=== PATIENT | male | born 1955 | race Caucasian/White ===

== ENCOUNTER 2017-06-11 13:35 | Emergency (ER) | payer BC ==
[~2017-06-11] VITALS: Ht 177.8 cm; Wt 64.0 kg
[~2017-06-11 13:35] MED LIST: BACL10TA PO; EZET10TA63 PO; GLC500 PO; [UNRECOGNIZED DRUG - REMARK] PO; [UNRECOGNIZED DRUG - REMARK] PO
[2017-06-11 13:37] VITALS: TEMP 36.9; Ht 177.8 cm; Wt 64.0 kg
[2017-06-11] MEDS ORDERED: ATOR10TA88 PO (13:44)
[2017-06-11] MEDS ORDERED: GLC/500 PO ×2 (13:44)
[2017-06-11] MEDS ORDERED: XYLOCAINE 1%/SOD BICARB 20 ML VIAL INFIL ONE (13:45)
[2017-06-11] MEDS ORDERED: CEPH500C PO (14:41)
--- NOTE | 2017-06-11 14:42 | EMERGENCY ROOM VISIT NOTE ---
ED Visit Note First contact with patient: 13:41 CHIEF COMPLAINT: Lip laceration HISTORY OF PRESENT ILLNESS: This 62-year-old male patient presents emergency department, ambulatory, complaining of a laceration to the left-side of the lip. The patient states he was using a circular saw to cut pressure-treated wood, when a large piece of the wood came back and hit him in the face. The patient denies any other injuries. There was no loss of consciousness, vomiting , or unusual behavior afterwards. Denies neck pain. No headache, nausea, or blurred vision. There is minimal active bleeding. The patient rates the pain as minimal and 1/10. The patient's tetanus shot is up to date. REVIEW OF SYSTEMS: A 6 system review of systems was completed with positives and pertinent negatives listed in the HPI. ALLERGIES: None MEDICATIONS: Lipitor, Glucophage PMH: Diabetes, hyperlipidemia SOCIAL HISTORY: The patient lives locally with family. He denies drug, alcohol , tobacco use. PHYSICAL EXAM: Vital Signs: Reviewed Nurse's notes, vital signs stable. GENERAL : This is a 62-year-old male, in no acute distress, well-developed, well- nourished. NEURO: The patient is alert and oriented to person place and time. No focal neurological defects. EYES: Pupils are round, equal, and react to light. EOMI. EARS: No hemotympanum. NECK: Supple. No cervical spine tenderness. FACE: No facial bone tenderness or mandibular tenderness. The mouth can open fully. The teeth are well aligned. No loose or chipped teeth. SKIN: There is a 1 cm laceration on the left anterior aspect of the upper lip. The laceration is through the vermilion border. The edges gape apart with and without traction. There is minimal active bleeding and no foreign material in the wound. There are no deep structures present. Capillary refill less than two seconds. Normal sensation to light and sharp touch. EMERGENCY DEPARTMENT COURSE: I examined the patient. Verbal consent was obtained to perform the procedure. Using sterile technique the wound was cleansed with Betadine. The area was sterilely draped. 1.5 ml of 1% buffered lidocaine was used to anesthetize the laceration on the face. Once the patient was anesthetized, the wound was copiously irrigated under pressure with sterile saline. The wound was explored and was as described above. The laceration was repaired using 5 simple interrupted 6-0 nylon sutures with the wound edges being well approximated. The patient tolerated the procedure well. Hemostasis was achieved. The area was cleaned with sterile saline and dressed with bacitracin ointment. The patient was given a Tdap vaccination. The patient was discharged home in good condition. DIFFERENTIAL DIAGNOSIS: Facial laceration, cellulitis, FB in laceration DIAGNOSIS: Facial laceration DISCHARGE INSTRUCTIONS: You have received 5 sutures on your left lip. These sutures are NOT dissolvable and WILL need to be removed by a health care provider in 4-5 days. You can return to the Emergency Department or contact your Primary Care Provider to have the sutures removed. Proper wound care is essential for adequate wound healing and infection prevention. You can shower and clean the wound with soap and water. Do not scour over the wound, pat dry with a towel. Do not submerse the wound (i.e. bathe or dish wash) until the sutures have been removed. You can use an antibiotic ointment with a dressing over the wound for the next 3-4 days. After this time you may leave the wound dry and open to the air. If crust develops over the wound you can use a Q-tip to apply a 1:1 peroxide:water solution to clean the wound. You were prescribed Keflex to be taken 4 times daily. This is an antibiotic. All antibiotics have the potential to cause diarrhea. Stop this medication and contact a medical provider if you were to develop any significant adverse side effects including: wheezing, shortness of breath, passing out, vomiting, or a diffuse rash. Always take antibiotics as directed and COMPLETE the ENTIRE course regardless of the improvement of your symptoms. Look for signs of infection of the wound including: increased pain, swelling, foul discharge, streaking, or increased temperature. If any of these are noticed you should return to the Emergency Department for further assessment and treatment. As with any laceration you may have received nerve damage to the surrounding tissues. This damage may or may not be permanent. You should keep the area covered with sunscreen for the first 6 months to 1 year when at risk for exposure to help minimize scarring. You can also use scar reducing creams or Vitamin E oil to help minimize scarring. For pain control, you can use the following [id number] medicines (if >12 yo): - Regular strength (325mg/tab) Tylenol (acetaminophen) 2 tabs every 4-6 hours as needed. Do not exceed 12 tablets in a 24 hour period. Avoid taking more than 4 grams (4000 mg) of Tylenol per day. This includes any other sources of acetaminophen you may take on a regular basis. - Regular strength (200 mg/tab) Advil (ibuprofen) 1-2 tabs every 4-6 hours as needed. Do not exceed a dose of 3200 mg per day. Return to the emergency department if your symptoms worsen despite treatment course outlined above. Problem List Medical Problems: (1) Diabetes mellitus Status: Chronic (2) Diverticulosis Status: Chronic (3) Hiatal hernia Status: Chronic (4) Hyperlipidemia Status: Chronic (5) Kidney stone Status: Chronic Current/Historical Medications Scheduled Atorvastatin (Lipitor), Unknown Dose PO DAILY Cephalexin Monohydrate (Keflex), 500 MG PO QID Metformin Hcl (Glucophage), 1,000 MG PO QAM Metformin Hcl (Glucophage), 500 MG PO QPM Allergies Coded Allergies: No Known Allergies (Verified , 03/31/14) Vital Signs Date Time Temp Pulse Resp B/P (MAP) Pulse Ox O2 Delivery O2 Flow Rate FiO2 06/11/17 14:48 73 16 135/88 97 Room Air 06/11/17 13:37 36.9 84 16 141/91 97 Medications Administered Medications (Trade) Dose Ordered Sig/Tristan Route Start Time Stop Time Status Last Admin Dose Admin Lidocaine HCl (Buffered Lidocaine 1% Inj) 20 ml STK-MED ONCE INFIL 06/11/17 13:45 06/11/17 13:46 DC 06/11/17 13:45 20 ML Departure Information Impression Primary Impression: Lip laceration Dispostion Home / Self-Care Condition GOOD Prescriptions Cephalexin Monohydrate (Keflex) 500 Mg Cap 500 MG PO QID for 7 Days, #28 CAP Prov: Vannessa Haq PA-C 06/11/17 Referrals Mich Dowling M.D. (PCP) Patient Instructions ED Laceration Facial Sutr Tape, Zite Additional Instructions You have received 5 sutures on your left lip. These sutures are NOT dissolvable and WILL need to be removed by a health care provider in 4-5 days. You can return to the Emergency Department or contact your Primary Care Provider to have the sutures removed. Proper wound care is essential for adequate wound healing and infection prevention. You can shower and clean the wound with soap and water. Do not scour over the wound, pat dry with a towel. Do not submerse the wound (i.e. bathe or dish wash) until the sutures have been removed. You can use an antibiotic ointment with a dressing over the wound for the next 3-4 days. After this time you may leave the wound dry and open to the air. If crust develops over the wound you can use a Q-tip to apply a 1:1 peroxide:water solution to clean the wound. You were prescribed Keflex to be taken 4 times daily. This is an antibiotic. All antibiotics have the potential to cause diarrhea. Stop this medication and contact a medical provider if you were to develop any significant adverse side effects including: wheezing, shortness of breath, passing out, vomiting, or a diffuse rash. Always take antibiotics as directed and COMPLETE the ENTIRE course regardless of the improvement of your symptoms. Look for signs of infection of the wound including: increased pain, swelling, foul discharge, streaking, or increased temperature. If any of these are noticed you should return to the Emergency Department for further assessment and treatment. As with any laceration you may have received nerve damage to the surrounding tissues. This damage may or may not be permanent. You should keep the area covered with sunscreen for the first 6 months to 1 year when at risk for exposure to help minimize scarring. You can also use scar reducing creams or Vitamin E oil to help minimize scarring. For pain control, you can use the following htjc-ynm-coqjmko medicines (if >12 yo): - Regular strength (325mg/tab) Tylenol (acetaminophen) 2 tabs every 4-6 hours as needed. Do not exceed 12 tablets in a 24 hour period. Avoid taking more than 4 grams (4000 mg) of Tylenol per day. This includes any other sources of acetaminophen you may take on a regular basis. - Regular strength (200 mg/tab) Advil (ibuprofen) 1-2 tabs every 4-6 hours as needed. Do not exceed a dose of 3200 mg per day. Return to the emergency department if your symptoms worsen despite treatment course outlined above. Problem Qualifiers Primary Impression: Lip laceration Encounter type: initial encounter Qualified Codes: S01.511A - Laceration without foreign body of lip, initial encounter
[2017-06-11 14:48] VITALS: BP 135/88; PULSE 73; O2SAT 97
[2017-06-11] MEDS ORDERED: DIPHTHERIA/TETANUS/PERTUSSIS 0.5 ML SYR/VIAL IM. ONE (15:15)
== END 2017-06-11 15:10 | disposition home or self-care (01) ==
LOC: C.EDB 13:37 → C.EDD 15:10
DX: S01.511A Laceration without foreign body of lip, initial encounter (principal); W31.2XXA Contact with powered woodworking and forming machines, initial encounter; E11.9 Type 2 diabetes mellitus without complications; E78.5 Hyperlipidemia, unspecified; Z23 Encounter for immunization

== ENCOUNTER 2022-02-14 15:56 | Inpatient (IN) ==
[2022-02-14] MEDS ORDERED: SODIUM CHLORIDE 0.9% 1000ML 1,000 ML IV STA (16:13)
--- NOTE | 2022-02-14 16:19 | Emergency Department Note ---
Impression & Plan Acute pyelonephritis, Hydronephrosis due to obstruction of ureter, Kidney stone on right side ED Provider Note NAME: CLAY GOYAL AGE: 66 SEX: M : 1955 ARRIVES VIA: Walk-In INFORMANT: Patient, ED PROVIDER(S): Marcelo Lang DO CHIEF COMPLAINT: Urinary retention HPI: The patient is a 66-year-old male who presented to the emergency department with concerns for urinary retention. The patient states he thinks he might have a urinary tract infection. He had a recent biopsy of his prostate with urology. He also has a history of MS. He states he is also noticed some abdominal distention abdominal pain and constipation over the last 3 to 4 days. He denies having any fever. He denies having any hematuria. He denies having any rectal bleeding. He did not see his family doctor for the symptoms. The patient has been taking his usual outpatient medications. He is noticed no chest pain or difficulty breathing. He states his symptoms are moderate. ROS: See above HPI for pertinent positives & negatives. A total of 10 systems reviewed and were otherwise negative. PAST MEDICAL HISTORY: See Below PAST SURGICAL HISTORY: See Below FAMILY HISTORY: See Below SOCIAL HISTORY: See Below HOME MEDICATIONS: See Below ALLERGIES: See Below VITALS: See Below PHYSICAL EXAMINATION: GENERAL: Patient is awake alert in no acute distress patient is resting comfortably and showing no signs of anxiety EYES: The conjunctivae are clear. The pupils are round and reactive. EARS, NOSE, MOUTH AND THROAT: The nose is without any evidence of any deformity. NECK: The neck is nontender and supple. RESPIRATORY: Normal respiratory effort is noted there is no evidence of wheezing rhonchi or rales CARDIOVASCULAR: Regular rate and rhythm noted there no murmurs rubs or gallops normal S1 normal S2. GASTROINTESTINAL: The abdomen is soft and mildly distended. There is suprapubic tenderness to palpation but no guarding rigidity. MUSCULOSKELETAL/EXTREMITIES: There is no evidence of gross deformity full range of motion is noted in the hips and shoulders. SKIN: There is no obvious evidence of any rash. No significant pedal edema was noted. NEUROLOGIC: Patient is awake alert and oriented x3. MEDICAL DECISION MAKING: The patient is a 66-year-old male who presented to the emergency department for an evaluation of difficulty urinating. He did have a recent transrectal biopsy of his prostate. The patient was found to have signs of urinary tract infection on urinalysis. He was treated with IV fluids and IV antibiotics. The patient initially did not have a fever when he presented. Because of his other symptoms further radiographic studies were obtained including CT the abdomen and pelvis. This appears to be consistent with a very large obstructing right-sided ureteral calculus. Given these findings I discussed his condition [facility] I also discussed this case with the on-call [facility] hospitalist. They have agreed to evaluate the patient in the emergency department for further management and disposition. The patient was reevaluated multiple times. He was feeling much better on subsequent reevaluation. Triage Nursing notes reviewed. Prior medical records reviewed Vital Signs: reviewed and remarkable for no significant abnormalities Differential diagnosis: Etiologies such as appendicitis, diverticulitis, obstruction, inflammatory bowel disease, renal colic, PUD, biliary pathology, pancreatitis, mesenteric ischemia, aortic pathology, infections, genitourinary, UTI, perforated viscus, as well as others were entertained. ER treatment provided: See below Diagnostics interpreted by me: ECG: none Cardiac Monitoring: An order was placed for continuous cardiac monitoring. The monitor shows a rate of 95 bpm with sinus rhythm. Laboratory studies: As stated above and show below. Imaging studies: See below Consultation(s): I discussed this case with Dr. Albarran I discussed this case with Dr. Watkins Past Med/Surg History Medical History Diabetes mellitus Elevated PSA History of recurrent UTIs Multiple sclerosis Surgical History History of hernia surgery Family History Father Diabetes Hypertension Heart disease Social History Smoking Status: Current every day smoker Tobacco Type: Cigarettes Cigarettes Per Day: 1/2 pack; Tobacco Cessation Education Requested by Patient: No Hx Alcohol Use: Yes Alcohol type: wine Hx Substance Use: No Preferred Language: Singaporean Communication Ability: Effective Communication Ability Comment: dificulty writing d/t MS Caustic Room Operator Required: No Beliefs That Will Affect Care: None marital status: Current Living Situation: Spouse current occupational status: employed 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 Other Information That Helps Us Care for You: No Feels Safe at Home: Yes Safety Concerns: Feels Safe At This Time Assistive Devices: Cane Allergies Allergies Allergy/AdvReac Type Severity Reaction Status Date / Time No Known Allergies Allergy Unknown Verified 11/01/21 11:31 Home Meds Home Medications Medication Instructions Recorded Confirmed lisinopril 2.5 mg tablet 2.5 mg PO DAILY 02/14/22 02/14/22 metformin 750 mg tablet,extended 2,250 mg PO DAILY 02/14/22 02/14/22 release 24 hr tamsulosin 0.4 mg capsule 0.4 mg PO DAILY 02/14/22 02/14/22 Results & Data (ED) Vital Signs Vital Signs - 24 hr 02/14/22 16:00 02/14/22 16:13 02/14/22 17:00 Temperature 37.3 C 37.6 C H Temperature Source Temporal Artery Scan Oral Pulse Rate 99 H Pulse Rate [Apical] 85 Pulse Rhythm [Apical] Regular Respiratory Rate 18 17 Blood Pressure [Right Arm] 170/100 H Blood Pressure Mean [Right Arm] 123 Pulse Oximetry 96 95 Oxygen Delivery Method Room Air Sepsis Recent Fever Within 48 Hours No Sepsis New/Unexplained Change in Mental Status No Sepsis Action Taken by Nursing No Action Required 02/14/22 19:00 Temperature Temperature Source Pulse Rate Pulse Rate [Apical] 69 Pulse Rhythm [Apical] Regular Respiratory Rate 19 Blood Pressure [Right Arm] 170/100 H Blood Pressure Mean [Right Arm] 123 Pulse Oximetry 95 Oxygen Delivery Method Room Air Sepsis Recent Fever Within 48 Hours Sepsis New/Unexplained Change in Mental Status Sepsis Action Taken by [facility] Medications Current Medication List: was personally reviewed by me Laboratory Data Attestation: I reviewed the patient's lab results. Result diagrams: 02/14/22 16:35 02/14/22 16:35 Lab Results 02/14/22 02/14/22 02/14/22 Range/Units 16:34 16:35 16:35 WBC 16.84 H (4.8-10.8) K/uL RBC 4.37 L (4.7-6.1) M/uL Hgb 14.4 (14.0-18.0) g/dL Hct 42.1 (42-52) % MCV 96.3 (80-100) fL MCH 33.0 (25-34) pg MCHC 34.2 (32-36) g/dL RDW Std Deviation 44.7 (36.4-46.3) fL RDW Coeff of Blanche 12.7 (11.5-14.5) % Plt Count 223 (130-400) K/uL MPV 10.1 (7.4-10.4) fL Immature Gran % (Auto) 0.3 % Neut % (Auto) 87.2 % Lymph % (Auto) 3.4 % [place] % (Auto) 8.9 % Eos % (Auto) 0.1 % Baso % (Auto) 0.1 % Neut # (Auto) 14.68 H (1.4-6.5) K/uL Lymph # (Auto) 0.57 L (1.2-3.4) K/uL [place] # (Auto) 1.50 H (0.11-0.59) K/uL Eos # (Auto) 0.02 (0-0.5) K/uL Baso # (Auto) 0.02 (0-0.2) K/uL Immature Gran # (Auto) 0.05 H (0.00-0.02) K/uL Sodium 135 L (136-145) mmol/L Potassium 4.1 (3.5-5.1) mmol/L Chloride 99 (98-107) mmol/L Carbon Dioxide 27 (21-32) mmol/L Anion Gap 9 (3-11) BUN 11 (6-23) mg/dl Creatinine 0.83 (0.6-1.4) mg/dl Est Cr Clr Drug Dosing Not Reportable Est GFR ( Amer) 105.5 ml/min Est GFR (Non-Af Amer) 91.0 ml/min BUN/Creatinine Ratio 13.3 (10-20) Glucose 212 H (70-99(Fasting)) mg/dl Lactate (0.4-2.0) mmol/L Calcium 9.0 (8.5-10.1) mg/dl Total Bilirubin 1.9 H (0.2-1.0) mg/dl AST 15 (13-39) U/L ALT 15 (7-52) U/L Alkaline Phosphatase 69 (34-104) U/L Total Protein 6.8 (6.0-8.3) gm/dl Albumin 3.9 (3.4-5.0) gm/dl Globulin 2.9 (2.5-4.0) gm/dl Albumin/Globulin Ratio 1.3 (0.9-2) Lipase 8 L (11-82) U/L Urine Color Yellow Urine Appearance Clear (Clear) Urine pH 6.0 (4.5-7.5) Ur Specific Media 1.022 (1.000-1.030) Urine Protein 1+ H (Negative) Urine Glucose (UA) 2+ H (Negative) Urine Ketones 1+ H (Negative) Urine Blood 3+ H (Negative) Urine Nitrite Positive A (Negative) Urine Bilirubin Negative (Negative) Urine Urobilinogen Negative (Negative) Ur Leukocyte Esterase 1+ H (Negative) Urine WBC (Auto) >30 H (0-5) /hpf Urine RBC (Auto) >30 H (0-4) /hpf U Hyaline Cast (Auto) 1-5 (0-5) /lpf U Epithel Cells (Auto) 5-10 H (0-5) /lpf Urine Bacteria (Auto) 3+ H (Negative) Urine Yeast Budding w/ Hyphae A (None Prsent) 02/14/22 Range/Units 19:00 WBC (4.8-10.8) K/uL RBC (4.7-6.1) M/uL Hgb (14.0-18.0) g/dL Hct (42-52) % MCV (80-100) fL MCH (25-34) pg MCHC (32-36) g/dL RDW Std Deviation (36.4-46.3) fL RDW Coeff of Blanche (11.5-14.5) % Plt Count (130-400) K/uL MPV (7.4-10.4) fL Immature Gran % (Auto) % Neut % (Auto) % Lymph % (Auto) % [place] % (Auto) % Eos % (Auto) % Baso % (Auto) % Neut # (Auto) (1.4-6.5) K/uL Lymph # (Auto) (1.2-3.4) K/uL [place] # (Auto) (0.11-0.59) K/uL Eos # (Auto) (0-0.5) K/uL Baso # (Auto) (0-0.2) K/uL Immature Gran # (Auto) (0.00-0.02) K/uL Sodium (136-145) mmol/L Potassium (3.5-5.1) mmol/L Chloride (98-107) mmol/L Carbon Dioxide (21-32) mmol/L Anion Gap (3-11) BUN (6-23) mg/dl Creatinine (0.6-1.4) mg/dl Est Cr Clr Drug Dosing Est GFR ( Amer) ml/min Est GFR (Non-Af Amer) ml/min BUN/Creatinine Ratio (10-20) Glucose (70-99(Fasting)) mg/dl Lactate 1.2 (0.4-2.0) mmol/L Calcium (8.5-10.1) mg/dl Total Bilirubin (0.2-1.0) mg/dl AST (13-39) U/L ALT (7-52) U/L Alkaline Phosphatase (34-104) U/L Total Protein (6.0-8.3) gm/dl Albumin (3.4-5.0) gm/dl Globulin (2.5-4.0) gm/dl Albumin/Globulin Ratio (0.9-2) Lipase (11-82) U/L Urine Color Urine Appearance (Clear) Urine pH (4.5-7.5) Ur Specific Media (1.000-1.030) Urine Protein (Negative) Urine Glucose (UA) (Negative) Urine Ketones (Negative) Urine Blood (Negative) Urine Nitrite (Negative) Urine Bilirubin (Negative) Urine Urobilinogen (Negative) Ur Leukocyte Esterase (Negative) Urine WBC (Auto) (0-5) /hpf Urine RBC (Auto) (0-4) /hpf U Hyaline Cast (Auto) (0-5) /lpf U Epithel Cells (Auto) (0-5) /lpf Urine Bacteria (Auto) (Negative) Urine Yeast (None Prsent) Administered Medications Acetaminophen (Acetaminophen 325 Mg Tab) 650 mg PO Q4H PRN PRN Reason: Pain or Fever Stop: 03/16/22 21:56 Last Admin: 02/14/22 22:43 Dose: 650 mg Documented by: [id number] Lactated Ringer's (Lr) 1,000 mls @ 125 mls/hr IV .Q8H PATRICIO Stop: 03/16/22 22:44 Last Infusion: 02/15/22 00:03 Dose: 125 mls/hr Documented by: [id number] Admin: 02/15/22 00:02 Dose: 125 mls/hr Documented by: [id number] Insulin Aspart (Insulin Aspart Per Unit) 0 units SC Q6 PATRICIO Stop: 03/16/22 22:29 Last Admin: 02/14/22 23:11 Dose: 2 units Documented by: [id number] Cosigned by: [id number] Discontinued Medications Sodium Chloride (Nss 1000ml) 1,000 mls @ 999 mls/hr IV .Q1H1M STA Stop: 02/14/22 17:13 Last Infusion: 02/14/22 19:59 Dose: 0 mls/hr Documented by: [id number] Admin: 02/14/22 16:31 Dose: 999 mls/hr Documented by: [id number] Ceftriaxone Sodium (Rocephin) 1,000 mg in 50 mls @ 100 mls/hr IV NOW STA Stop: 02/14/22 18:13 Last Infusion: 02/14/22 21:15 Dose: 0 mls/hr Documented by: [id number] Admin: 02/14/22 19:00 Dose: 100 mls/hr Documented by: [id number] Sodium Chloride (Nss 1000ml) 1,000 mls @ 999 mls/hr IV .Q1H1M ONE Stop: 02/14/22 19:04 Last Infusion: 02/14/22 22:58 Dose: 0 mls/hr Documented by: [id number] Admin: 02/14/22 20:30 Dose: 999 mls/hr Documented by: [id number] Piperacillin Sod/Tazobactam (Sod 3.375 gm/ Dextrose) 115 mls @ 230 mls/hr IV ONE ONE; Protocol Stop: 02/14/22 22:59 Last Infusion: 02/14/22 23:42 Dose: 0 mls/hr Documented by: [id number] Admin: 02/14/22 23:09 Dose: 230 mls/hr Documented by: [id number] Lactated Ringer's (Lr) 500 mls @ 999 mls/hr IV .Q31M ONE Stop: 02/14/22 23:10 Last Infusion: 02/15/22 00:02 Dose: 0 mls/hr Documented by: [id number] Admin: 02/14/22 23:25 Dose: 999 mls/hr Documented by: [id number] Imaging Data Radiologist's Impression: Abdomen/Pelvis CT 02/14/22 16:13 CT abd pelvis wo con CLINICAL HISTORY: flank pain TECHNIQUE: Helical axial images of the abdomen and pelvis were obtained. Automated dose lowering techniques and/or adjustment according to patient size were utilized for this exam. This exam was performed without intravenous contrast. COMPARISON: Comparison is made to CT abdomen pelvis 08/14/2012 FINDINGS: Lower chest: No acute abnormality Liver: Unremarkable. No focal lesions are seen. Gallbladder and biliary tree: No calcified gallstones. Normal caliber wall. No intra- or extrahepatic biliary ductal dilation. Pancreas: Unremarkable, no focal lesions. Spleen: Unremarkable. Adrenals: Unremarkable. Kidneys and ureters: There is right hydronephrosis and an obstructing stone in the proximal ureter measuring 4 mm. Bladder: Unremarkable. Reproductive organs: Prostatic calcifications are seen which may represent prior hemorrhage or granulomatous disease. Bowel: Diverticulosis is seen without evidence of diverticulitis. The appendix is normal. A hiatal hernia is seen. Lymph nodes Retroperitoneal: Subcentimeter lymph nodes are noted. Mesenteric: Unremarkable. Pelvic: Unremarkable. Peritoneum: Normal. Vessels: Atherosclerotic calcifications are seen. Abdominal wall: Unremarkable. Bones: Degenerative changes in the visualized spine. IMPRESSION: Obstructive right nephrolithiasis with associated hydronephrosis. ACT 112: Negative or not required by law. Electronically signed by: Breezy Michelle M.D. 02/14/2022 6:15 PM Discharge Plan Visit Data Chief Complaint: Unable to Void Stated Complaint: CONSTIPATION, URINARY SYMPTOMS ED Provider: Marcelo Lang Discharge Problem: Acute pyelonephritis, Hydronephrosis due to obstruction of ureter, Kidney stone on right side Patient Disposition: Admitted As Inpatient Discharge Instructions Interventions: ED Discharge Assessment Last Done: 02/14/22 21:23
[2022-02-14 17:04] LABS: Appearance Urine Clear (Clear); Bacteria Urine Automated 3+ (Negative); Bilirubin Urine Negative (Negative); Blood Urine 3+ (Negative); Color Urine Yellow; Glucose Urine UA 2+ (Negative); Ketones Urine 1+ (Negative); Leukocyte Esterase Urine 1+ (Negative); Nitrite Urine Positive (Negative); Protein Urine 1+ (Negative); RBC Urine Automated >30 /hpf (0-4); Specific Gravity Urine 1.022 (1.000-1.030); Urobilinogen Urine Negative (Negative); WBC Urine Automated >30 /hpf (0-5)
[2022-02-14 17:16] LABS: Alanine Aminotransferase 15 U/L (7-52); Albumin Globulin Ratio 1.3 (0.9-2); Albumin Level 3.9 gm/dl (3.4-5.0); Alkaline Phosphatase 69 U/L (34-104); Anion Gap 9 (3-11); Aspartate Aminotransferase 15 U/L (13-39); BUN Creatinine Ratio 13.3 (10-20); Bilirubin,Total 1.9 mg/dl (0.2-1.0); Blood Urea Nitrogen 11 mg/dl (6-23); Carbon Dioxide 27 mmol/L (21-32); Chloride 99 mmol/L (98-107); Est GFR (African American) 105.5 ml/min; Globulin 2.9 gm/dl (2.5-4.0); Glucose 212 mg/dl (70-99(Fasting)); Lipase 8 U/L (11-82); Potassium 4.1 mmol/L (3.5-5.1); Sodium 135 mmol/L (136-145); Total Protein 6.8 gm/dl (6.0-8.3)
[2022-02-14 17:38] LABS: Basophils # (auto) 0.02 K/uL (0-0.2); Basophils % (auto) 0.1 %; Eosinophils # (auto) 0.02 K/uL (0-0.5); Eosinophils % (auto) 0.1 %; Hematocrit (blood only) 42.1 % (42-52); Hemoglobin 14.4 g/dL (14.0-18.0); Immature Granulocytes # (auto) 0.05 K/uL (0.00-0.02); Immature Granulocytes % (auto) 0.3 %; Lymphocytes # (auto) 0.57 K/uL (1.2-3.4); Lymphocytes % (auto) 3.4 %; Mean Corpuscular Hgb Conc 34.2 g/dL (32-36); Mean Corpuscular Volume 96.3 fL (80-100); Mean Platelet Volume 10.1 fL (7.4-10.4); Monocytes % (auto) 8.9 %; Neutrophils # (auto) 14.68 K/uL (1.4-6.5); Neutrophils % (auto) 87.2 %; Platelet Count 223 K/uL (130-400); RDW Coefficient of Variation 12.7 % (11.5-14.5); RDW Standard Deviation 44.7 fL (36.4-46.3); Red Blood Count 4.37 M/uL (4.7-6.1); White Blood Count 16.84 K/uL (4.8-10.8)
[2022-02-14] MEDS ORDERED: cefTRIAXone SODIUM 1,000 MG/50 ML BAG IV STA (17:44)
[2022-02-14] MEDS ORDERED: SODIUM CHLORIDE 0.9% 1000ML 1,000 ML IV ONE (18:04)
--- NOTE | 2022-02-14 18:18 | CT Scan Report ---
CT abd pelvis wo con CLINICAL HISTORY: flank pain TECHNIQUE: Helical axial images of the abdomen and pelvis were obtained. Automated dose lowering tech niques and/or adjustment according to patient size were utilized for this exam. This exam was perfor med without intravenous contrast. COMPARISON: Comparison is made to CT abdomen pelvis 08/14/2012 FINDINGS: Lower chest: No acute abnormality Liver: Unremarkable. No focal lesions are seen. Gallbladder and biliary tree: No calcified gallstones. Normal caliber wall. No intra- or extrahepatic biliary ductal dilation. Pancreas: Unremarkable, no focal lesions. Spleen: Unremarkable. Adrenals: Unremarkable. Kidneys and ureters: There is right hydronephrosis and an obstructing stone in the proximal ureter me asuring 4 mm. Bladder: Unremarkable. Reproductive organs: Prostatic calcifications are seen which may represent prior hemorrhage or granul omatous disease. Bowel: Diverticulosis is seen without evidence of diverticulitis. The appendix is normal. A hiatal he rnia is seen. Lymph nodes Retroperitoneal: Subcentimeter lymph nodes are noted. Mesenteric: Unremarkable. Pelvic: Unremarkable. Peritoneum: Normal. Vessels: Atherosclerotic calcifications are seen. Abdominal wall: Unremarkable. Bones: Degenerative changes in the visualized spine. IMPRESSION: Obstructive right nephrolithiasis with associated hydronephrosis. ACT 112: Negative or not required by law. Electronically signed by: Breezy Michelle M.D. 02/14/2022 6:15 PM
--- NOTE | 2022-02-14 18:43 | History & Physical Report ---
Date of Service February 14, 2022 Assessment & Plan (1) Sepsis secondary to UTI: Plan: Having chills in the ER but no objective fever SIRS criteria met with HR and WBC Lactate WNL Ceftriaxone 2g IV given in the ER, will broaden coverage to Zosyn Follow up blood (taken after first dose of antibiotics) and urine cultures Discussed with Dr Albarran - planning on ureteral stent tomorrow (2) Hydronephrosis with urinary obstruction due to ureteral calculus: Plan: Planning on ureteral stent tomorrow (3) Constipation: Plan: Main reason for him coming to the ER today. Currently NPO therefore laxatives deferred (4) Diabetes mellitus: Plan: Hemoglobin A1C unknown, take with AM labs Hold metformin Insulin sliding scale for correction only, will add Lantus if requiring regular correction (5) Multiple sclerosis: Plan: Notable history of this, not on any medications Plan: VTE Prophylaxis - chemical deferred as may need urgent stent overnight Diet - NPO Disposition - admit to PCU Admission and Anticipated Discharge Date Admission Date: February 14, 2022 History of Present Illness Chief Complaint: Urinary retention Primary Care Provider: MD Frankie Burdick 66 year old male who presents to the ER with 4 days of urinary retention and no bowel movements. He has intermittently self catheterized for the last year. He recently underwent prostate biopsy on 01/31/22. No significant problems following the biopsy, only a small amount of blood in urine but otherwise was urinating ok. For the last 4 days however he has been unable to pass urine and using intermittent catheterization. No BM for last 4 days. Tried laxatives before he came here OTC but didn't help. He reports chills all day today but no objective fever. He denies any nausea, vomiting or abdominal pain. He reports lower bilateral back pain. Last drank Gatorade around 10am. Not eaten anything in the last 2 days. With regards to the constipation he reports this is a new thing. Does not usually get constipated. He last had a colonoscopy 1-2 years ago with some polyps. In the ER CT showed an obstructing right nephrolithiasis with associated hydronephrosis. He was given IV ceftriaxone. ER discussed with urology and recommended ureteral stent planned for tomorrow. He was referred to medicine for admission and ongoing management of pyelonephritis and hydronephrosis secondary to kidney stone. Allergies Allergy/AdvReac Type Severity Reaction Status Date / Time No Known Allergies Allergy Unknown Verified 11/01/21 11:31 Home Medications Medication Instructions Recorded Confirmed Type lisinopril 2.5 mg tablet 2.5 mg PO DAILY 02/14/22 02/14/22 History metformin 750 mg tablet,extended 2,250 mg PO DAILY 02/14/22 02/14/22 History release 24 hr tamsulosin 0.4 mg capsule 0.4 mg PO DAILY 02/14/22 02/14/22 History Past Med/Surg History Medical History Diabetes mellitus Elevated PSA History of recurrent UTIs Multiple sclerosis Surgical History History of hernia surgery Family History Father Diabetes Hypertension Heart disease Social History Smoking Status: Current every day smoker Tobacco Type: Cigarettes Cigarettes Per Day: 1/2 pack; Tobacco Cessation Education Requested by Patient: No Hx Alcohol Use: Yes Alcohol type: wine Hx Substance Use: No Preferred Language: Nigerien Communication Ability: Effective Communication Ability Comment: dificulty writing d/t MS 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 Required: No Beliefs That Will Affect Care: None marital status: Current Living Situation: Spouse current occupational status: employed 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 Other Information That Helps Us Care for You: No Feels Safe at Home: Yes Safety Concerns: Feels Safe At This Time Assistive Devices: Cane Review of Systems Review of Systems: All systems reviewed & are unremarkable except as noted in HPI & below Physical Exam Constitutional: WD/WN, vitals as above Eyes: + anicteric sclerae; normal pupil size ENMT: external ear and nose normal, oropharynx normal Respiratory: normal respiratory effort, lungs clear to auscultation Cardiovascular: Rate/Rhythm: regular rhythm and + tachycardic Heart Sounds: no murmur Extremities: normal capillary refill; no calf tenderness and no pedal edema Gastrointestinal (Abdomen): Inspection/Auscultation: normal bowel sounds Percussion/Palpation: abdomen soft; abdomen nontender, no guarding and abdomen not rigid Musculoskeletal: no cyanosis or clubbing, extremities motor strength 5/5 Skin: no rashes, warm and dry Neurologic: moves all extremities and awake; not confused Psychiatric: A+Ox3, euthymic affect Genitourinary: no CVA tenderness Results & Data Results & Data ([facility]) Vital Signs (Past 12 Hours) Vital Signs Temp Pulse Resp Pulse Ox 02/14/22 16:00 37.3 C 99 H 18 96 Laboratory Results Abnormal lab results 02/14/22 02/14/22 02/14/22 Range/Units 16:34 16:35 16:35 WBC 16.84 H (4.8-10.8) K/uL RBC 4.37 L (4.7-6.1) M/uL Neut # (Auto) 14.68 H (1.4-6.5) K/uL Lymph # (Auto) 0.57 L (1.2-3.4) K/uL [facility] [place] [facility] # (Auto) 1.50 H (0.11-0.59) K/uL Immature Gran # (Auto) 0.05 H (0.00-0.02) K/uL Sodium 135 L (136-145) mmol/L Glucose 212 H (70-99(Fasting)) mg/dl Total Bilirubin 1.9 H (0.2-1.0) mg/dl Lipase 8 L (11-82) U/L Urine Protein 1+ H (Negative) Urine Glucose (UA) 2+ H (Negative) Urine Ketones 1+ H (Negative) Urine Blood 3+ H (Negative) Urine Nitrite Positive A (Negative) Ur Leukocyte Esterase 1+ H (Negative) Urine WBC (Auto) >30 H (0-5) /hpf Urine RBC (Auto) >30 H (0-4) /hpf U Epithel Cells (Auto) 5-10 H (0-5) /lpf Urine Bacteria (Auto) 3+ H (Negative) Urine Yeast Budding w/ Hyphae A (None Prsent) Diagnostic Findings CT abd pelvis wo con CLINICAL HISTORY: flank pain TECHNIQUE: Helical axial images of the abdomen and pelvis were obtained. Au tomated dose lowering techniques and/or adjustment according to patient size were utilized for this exam. This exam was performed without intravenous contrast. COMPARISON: Comparison is made to CT abdomen pelvis 08/14/2012 FINDINGS: Lower chest: No acute abnormality Liver: Unremarkable. No focal lesions are seen. Gallbladder and biliary tree: No calcified gallstones. Normal caliber wall. No intra- or extrahepatic biliary ductal dilation. Pancreas: Unremarkable, no focal lesions. Spleen: Unremarkable. Adrenals: Unremarkable. Kidneys and ureters: There is right hydronephrosis and an obstructing stone in the proximal ureter measuring 4 mm. Bladder: Unremarkable. Reproductive organs: Prostatic calcifications are seen which may represent prior hemorrhage or granulomatous disease. Bowel: Diverticulosis is seen without evidence of diverticulitis. The appendix is normal. A hiatal hernia is seen. Lymph nodes Retroperitoneal: Subcentimeter lymph nodes are noted. Mesenteric: Unremarkable. Pelvic: Unremarkable. Peritoneum: Normal. Vessels: Atherosclerotic calcifications are seen. Abdominal wall: Unremarkable. Bones: Degenerative changes in the visualized spine. IMPRESSION: Obstructive right nephrolithiasis with associated hydronephrosis. Medications Administered ER Medications Given: NSS 2L bolus Ceftriaxone 1g IV Code Status & VTE Plan Code Status Full VTE Prophylaxis Plan VTE Prophylaxis will be ordered: No PG Care Time/CCT Total # of Minutes Spent Total Time Spent with Patient: Total time spent is greater than 50% in coordination of care (as documented) at patient's floor/unit and/or counseling patient: Coding Level of Care Code 48444 Initial Inpt Care Lvl 3 Diagnoses Diabetes mellitus E11.9 Multiple sclerosis G35 Hydronephrosis with urinary obstruction due to ureteral calculus N13.2 Sepsis secondary to UTI A41.9; N39.0 Constipation K59.00
[2022-02-14] MEDS ORDERED: GLUCAGON FOR INJ 1 MG VIAL SQ PRN (21:57)
[2022-02-14] MEDS ORDERED: GLUCOSE 40% GEL 15 GM TUBE PO PRN (21:57)
[2022-02-14] MEDS ORDERED: PIPERACILL/TAZOBAC CONSULT ACTIVE PRN (21:57)
[2022-02-14] MEDS ORDERED: DEXTROSE 50% 50 ML SYRINGE IV PRN (21:57)
[2022-02-14] MEDS ORDERED: ONDANSETRON INJ 2 MG/ML 2 ML VIAL IV PRN (21:57)
[2022-02-14] MEDS ORDERED: GLUCOSE 10 TABS/TUBE PO PRN (21:57)
[2022-02-14] MEDS ORDERED: CARBOHYDRATES FOR HYPOGLYCEMIA PO PRN (21:57)
[2022-02-14] MEDS ORDERED: PIPERACILLIN/TAZOBACTAM 3.375 GM in DEXTROSE 5% 100 ML IV ONE (22:30)
[2022-02-14] MEDS ORDERED: LACTATED RINGER'S 500 ML IV ONE (22:40)
[2022-02-14] MEDS: ACETAMINOPHEN 325 MG TAB PO PRN (22:43)
[2022-02-14] MEDS: INSULIN ASPART PER UNIT SC SCH (23:11)
[2022-02-15] MEDS: LACTATED RINGER'S 1,000 ML IV SCH ×3 (00:02→20:54)
[2022-02-15] MEDS: PIPERACILLIN/TAZOBACTAM 3.375 GM in DEXTROSE 5% 100 ML IV SCH ×3 (04:16→20:53)
[2022-02-15] MEDS: INSULIN ASPART PER UNIT SC SCH ×4 (06:28→20:55)
--- NOTE | 2022-02-15 07:34 | Urology Consultation ---
Date of Consultation February 15, 2022 Assessment & Plan (1) Kidney stone on right side: (2) Urinary tract infection: 66-year-old male with a history of MS and neurogenic bladder. He presented to the hospital with right flank pain and was found to have a right proximal ureteral calculus and concern for infection. Plan to go the OR this morning for cystoscopy with right retrograde pyelogram right ureteral stent placement Continue antibiotics Consent obtained and patient marked History of Present Illness Reason for Consultation: Right ureteral calculus Attending Physician: Tawny Washburn MD History of Present Illness 66-year-old male who I followed for history of MS and neurogenic bladder. He is also had elevated PSAs and most recently performed a prostate needle biopsy, which was negative. He intermittently catheterizes to empty his bladder. At our last visit, we had discussed moving forward with urodynamics for further evaluation. He presented to the emergency department yesterday with right flank pain. Labs showed a leukocytosis of 16.8, creatinine of 0.83 which is roughly his baseline, and urinalysis that was positive for nitrites, positive for leukocyte esterase, greater than 30 WBCs, greater than 30 RBCs with bacteria and yeast. I suspect this is colonization due to his catheterization regiment. CT scan was performed which shows a right proximal ureteral calculus and a significantly malrotated right kidney. There is moderate right hydronephrosis. Vitals showed that he was febrile with a heart rate in the 90s and was maintaining his blood pressures. He received ceftriaxone as well as Zosyn. Allergies Allergy/AdvReac Type Severity Reaction Status Date / Time No Known Allergies Allergy Unknown Verified 11/01/21 11:31 Home Medications Medication Instructions Recorded Confirmed Type lisinopril 2.5 mg tablet 2.5 mg PO DAILY 02/14/22 02/14/22 History metformin 750 mg tablet,extended 2,250 mg PO DAILY 02/14/22 02/14/22 History release 24 hr tamsulosin 0.4 mg capsule 0.4 mg PO DAILY 02/14/22 02/14/22 History Patient History Medical History Diabetes mellitus Elevated PSA History of recurrent UTIs Multiple sclerosis Surgical History History of hernia surgery Family History Father Diabetes Hypertension Heart disease Social History Smoking Status: Current every day smoker Tobacco Type: Cigarettes Cigarettes Per Day: 1/2 pack; Tobacco Cessation Education Requested by Patient: No Hx Alcohol Use: Yes Alcohol type: wine Hx Substance Use: No Preferred Language: Sinhala Communication Ability: Effective Communication Ability Comment: dificulty writing d/t MS 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 Required: No Beliefs That Will Affect Care: None marital status: Current Living Situation: Spouse current occupational status: employed 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 Other Information That Helps Us Care for You: No Feels Safe at Home: Yes Safety Concerns: Feels Safe At This Time Assistive Devices: Cane Review of Systems Review of Systems: 14 point review of systems negative outside of what is listed above in HPI Physical Exam Physical Exam: General: Alert and oriented, no acute distress HEENT: Normocephalic, mucous membranes moist Pulmonary: Nonlabored respirations Abdomen: Nondistended Extremities: Moves all 4 spontaneously Neuro: No gross deficits Skin: Warm, dry, no rashes noted Results & Data ([facility]) Vital Signs (Past 12 Hours) Vital Signs Temp Pulse Pulse Resp BP BP Pulse Ox 02/15/22 03:17 37.4 C 99 H 16 118/69 96 02/14/22 22:46 38.7 C H 93 H 17 159/72 H 97 02/14/22 22:00 39.1 C H 99 H 20 156/76 H 95 02/14/22 21:45 97 H 02/14/22 21:23 95 H 12 139/89 95 PG Care Time/CCT Total # of Minutes Spent Total Time Spent with Patient: Total time spent is greater than 50% in coordination of care (as documented) at patient's floor/unit and/or counseling patient: C[place] [address] Initial Inpt Care Lvl 3 Patient Type Established Diagnoses Kidney stone on right side N20.0 Urinary tract infection N39.0
[2022-02-15] MEDS ORDERED: fentaNYL citrate 100 MCG/2 ML VIAL ONE (07:59)
[2022-02-15] MEDS ORDERED: ONDANSETRON INJ 2 MG/ML 2 ML VIAL ONE (07:59)
[2022-02-15] MEDS ORDERED: MIDAZOLAM HCL 1 MG/ML 2ML VIAL ONE (07:59)
[2022-02-15] MEDS ORDERED: PROPOFOL IV EMULSION 10 MG/ML 20 ML VIAL IV ONE ×2 (07:59→08:29)
[2022-02-15 08:03] LABS: Basophils # (auto) 0.01 K/uL (0-0.2); Basophils % (auto) 0.1 %; Eosinophils # (auto) 0.01 K/uL (0-0.5); Eosinophils % (auto) 0.1 %; Hematocrit (blood only) 35.2 % (42-52); Hemoglobin 11.9 g/dL (14.0-18.0); Immature Granulocytes # (auto) 0.01 K/uL (0.00-0.02); Immature Granulocytes % (auto) 0.1 %; Lymphocytes # (auto) 0.62 K/uL (1.2-3.4); Lymphocytes % (auto) 6.1 %; Mean Corpuscular Hemoglobin 32.6 pg (25-34); Mean Corpuscular Hgb Conc 33.8 g/dL (32-36); Mean Corpuscular Volume 96.4 fL (80-100); Mean Platelet Volume 9.7 fL (7.4-10.4); Monocytes % (auto) 8.9 %; Neutrophils # (auto) 8.58 K/uL (1.4-6.5); Neutrophils % (auto) 84.7 %; Platelet Count 194 K/uL (130-400); RDW Coefficient of Variation 12.7 % (11.5-14.5); RDW Standard Deviation 44.7 fL (36.4-46.3); Red Blood Count 3.65 M/uL (4.7-6.1); White Blood Count 10.13 K/uL (4.8-10.8)
[2022-02-15] MEDS ORDERED: ePHEDrine sulfate 50 MG/ML AMP IV PRN (08:14)
[2022-02-15] MEDS ORDERED: fentaNYL citrate 100 MCG/2 ML VIAL IV PRN (08:14)
[2022-02-15] MEDS ORDERED: NALOXONE HCL 0.4 MG/1 ML VIAL/CARP IV PRN (08:14)
[2022-02-15] MEDS ORDERED: FLUMAZENIL 0.1 MG/1 ML 10 ML VIAL IV PRN (08:14)
[2022-02-15] MEDS ORDERED: ATROPINE SULFATE 0.1 MG/ML 10ML SYR IV PRN (08:14)
[2022-02-15] MEDS ORDERED: PROMETHAZINE HCL 12.5 MG in SODIUM CHLORIDE 0.9% 50 ML IV PRN (08:14)
[2022-02-15] MEDS ORDERED: LABETALOL HCL IV 5 MG/ML 20ML IV PRN (08:14)
[2022-02-15] MEDS ORDERED: ONDANSETRON INJ 2 MG/ML 2 ML VIAL IV PRN (08:14)
--- NOTE | 2022-02-15 08:14 | Anesthesiology Consultation ---
Date of Service February 15, 2022 Assessment & Plan Chart Review Chart Review: Acceptable Risk for Surgery and Patient NOT seen in Pre Admission Testing Consults Requested none ASA ASA3 Proposed Anesthesia Anesthesia Type: MAC Risk / Benefits Reviewed With: PT / POA / Parent / Guardian, Accepts Plan and Informed Consent Obtained Additional Comments: covid test negative History Surgery Operation Date: 02/15/22 09:50 Proposed Procedures p Cystoscopy, Right Ureteral Stent Placement - Chuckie Crowell MD Height/Weight Height: 5 ft 10 in Weight: 82.3 kg Allergies Allergy/AdvReac Type Severity Reaction Status Date / Time No Known Allergies Allergy Unknown Verified 11/01/21 11:31 Medications Home Medications Medication Instructions Recorded Confirmed Last Taken lisinopril 2.5 mg tablet 2.5 mg PO DAILY 02/14/22 02/14/22 Unknown metformin 750 mg tablet,extended 2,250 mg PO DAILY 02/14/22 02/14/22 Unknown release 24 hr tamsulosin 0.4 mg capsule 0.4 mg PO DAILY 02/14/22 02/14/22 Unknown Active Medications Generic Name Dose Route Start Last Admin Trade Name Freq PRN Reason Stop Dose Admin Acetaminophen 650 mg 02/14/22 21:57 02/14/22 22:43 Acetaminophen 325 Mg Tab PO 03/16/22 21:56 650 mg Q4H PRN Administration Pain or Fever Piperacillin Sod/Tazobactam 115 mls @ 28.75 mls/hr 02/15/22 04:00 02/15/22 04:16 Sod 3.375 gm/ Dextrose IV 02/25/22 03:59 28.8 mls/hr Q8H PATRICIO Administration Protocol Lactated Ringer's 1,000 mls @ 125 mls/hr 02/14/22 22:45 02/15/22 00:03 Lr IV 03/16/22 22:44 125 mls/hr .Q8H PATRICIO Infusion Insulin Aspart 0 units 02/14/22 22:30 02/15/22 06:28 Insulin Aspart Per Unit SC 03/16/22 22:29 2 units Q6 PATRICIO Administration NPO Date Last Intake of Fluids: 02/14/22 Time Last Intake of Fluids: 23:00 Date Last Intake of Solids: 02/14/22 Time Last Intake of Solids: 11:00 Past Medical History Medical History Diabetes mellitus Elevated PSA History of recurrent UTIs Multiple sclerosis Exercise / Class Metabolic Activity III < 4 Walking/Shop/Light housework Past Family History Family History Father Diabetes Hypertension Heart disease Past Surgical History Surgical History History of hernia surgery Past Anesthesia History No Hx of Anesthesia Complications and No Family Hx of Anesthesia Complications History of PONV No Hx of PONV and No Hx of Motion Sickness Social History Smoking Status: Current every day smoker tobacco type: cigarettes Smoking cigarettes per day: 1/2 pack Hx Alcohol Use: Yes Alcohol type: wine alcohol intake frequency: a few times a week Hx Substance Use: No Physical Exam Vital Signs Last Vital Signs Temp 37.8 C H 02/15/22 07:46 Pulse 90 02/15/22 07:46 Resp 18 02/15/22 07:46 BP 131/72 02/15/22 07:46 Pulse Ox 95 02/15/22 07:46 Constitutional not obese ENMT Mouth: no dentition abnormality Thyromental Distance: > or= 3.5 Finger Breadths Mallampati Class: II Neck normal visual inspection and trachea midline; neck extension not limited Respiratory normal respiratory effort Auscultation: lungs clear to auscultation bilaterally Cardiovascular Rate/Rhythm: regular rate and regular rhythm Heart Sounds: no murmur Vessels: no carotid bruit Musculoskeletal Spine: normal cervical ROM Extremities: extremities normal to inspection (right leg weakness) Neurologic moves all extremities Motor/Sensory: no sensory deficit Psychiatric Orientation: alert and oriented x 3 Testing Laboratory Results 02/15/22 07:25 Urine Color Yellow 02/14/22 16:34 Urine Appearance Clear (Clear) 02/14/22 16:34 Urine pH 6.0 (4.5-7.5) 02/14/22 16:34 Ur Specific [place] 1.022 (1.000-1.030) 02/14/22 16:34 Urine Protein 1+ (Negative) H 02/14/22 16:34 Urine Glucose (UA) 2+ (Negative) H 02/14/22 16:34 Urine Ketones 1+ (Negative) H 02/14/22 16:34 Urine Nitrite Positive (Negative) A 02/14/22 16:34 Ur Leukocyte Esterase 1+ (Negative) H 02/14/22 16:34 Urine WBC (Auto) >30 /hpf (0-5) H 02/14/22 16:34 Urine RBC (Auto) >30 /hpf (0-4) H 02/14/22 16:34 U Hyaline Cast (Auto) 1-5 /lpf (0-5) 02/14/22 16:34 U Epithel Cells (Auto) 5-10 /lpf (0-5) H 02/14/22 16:34 Urine Bacteria (Auto) 3+ (Negative) H 02/14/22 16:34 02/15/22 02/15/22 02/15/22 07:48 07:33 06:14 POC Glucose 156 H 174 H 217 H 02/14/22 22:47 POC Glucose 219 H
[2022-02-15 08:28] LABS: BUN Creatinine Ratio 14.1 (10-20); Calcium 8.3 mg/dl (8.5-10.1); Creatinine Clr Calc Pharmacy 87.1 ml/min; Est GFR (African American) 104.5 ml/min; Est GFR (Non-African American) 90.2 ml/min; Potassium 3.6 mmol/L (3.5-5.1)
[2022-02-15] MEDS ORDERED: OPTIRAY 300 IV ONE (08:52)
--- NOTE | 2022-02-15 08:54 | Post Operative Brief Note ---
PG Immediate Post Op with CF Date of Surgery February 15, 2022 Pre & Post Diagnosis Operation Date: 02/15/22 09:50 Pre-Op Diagnosis: Kidney stone on right side, Urinary tract infection Post-Op Diagnosis: Kidney stone on right side, Urinary tract infection I identified the patient and participated in the time-out.: Yes Procedure Operation Date: 02/15/22 09:50 Actual Procedures p Cystoscopy, Right Ureteral Stent Placement, Right retrograde pyelogram(Right) - Chuckie Crowell MD Surgeon Chuckie Crowell MD Questioned Documents Examiner None Estimated Blood Loss 5 Findings See Below 1. Moderate triblobar obstruction from prostate 2. 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 Stent in appropriate position. Right retrograde showed moderate hydro. Specimens Specimen Description: No specimens Drains Nunez Catheter Anesthesia Type MAC Complications none Disposition Accompanied Patient To Recovery: No Disposition: Recovery Room Overlapping Procedure I was present for: the critical portions of procedure.
--- NOTE | 2022-02-15 09:07 | Operative Report ---
PG Post Operative Report Pre & Post Diagnosis Operation Date: 02/15/22 09:50 Pre-Op Diagnosis: Kidney stone on right side, Urinary tract infection Post-Op Diagnosis: Kidney stone on right side, Urinary tract infection I identified the patient and participated in the time-out.: Yes Procedure Operation Date: 02/15/22 09:50 Actual Procedures p Cystoscopy, Right Ureteral Stent Placement, Right retrograde pyelogram with radiographic interpretation - Chuckie Crowell MD Surgeon Chuckie Crowell MD Political Scientist None Estimated Blood Loss 5 Findings See Below 1. Moderate trilobar hyperplasia and obstruction from the prostate 2. Right retrograde pyelogram showed a low-lying, malrotated right kidney with moderate hydronephrosis 3. Stent in appropriate position Specimens None Drains 6 Togolese by 24 cm right ureteral stent Anesthesia Type MAC Complications none Disposition Accompanied Patient To Recovery: No Disposition: Recovery Room Indications 66-year-old male who came in with a right proximal obstructing ureteral calculus, leukocytosis, febrile and positive UA concerning for sepsis. Risks and benefits discussed and consent was obtained. Patient was marked. He was taken to the operating room for cystoscopy with right ureteral stent placement. Description of Procedure After informed consent was obtained, the patient was transported operative suite. MAC anesthesia was induced. The patient was placed in dorsolithotomy position prepped and draped in a sterile fashion. They received preoperative ceftriaxone and Zosyn for antibiotic prophylaxis. An appropriate surgical timeout was performed. A 22 Togolese rigid scope was inserted per urethra into the bladder. Quinones cyst oscopy revealed no stones or lesions. I turned my attention the right ureteral orifice which was difficult to see with the 30 degree lens. I switched to a 70 degree lens and intubated this with a 5 Togolese open-ended catheter. A right retrograde pyelogram was shot which showed a low-lying, malrotated right kidney with right hydronephrosis. A sensor wire was advanced into the kidney and confirmed fluoroscopically. A 6 T[place]olese by 24 cm right ureteral stent was deployed with a good proximal coil in the upper pole and a good distal coil noted in the bladder, confirmed fluoroscopically and under direct visualization, respectively. The bladder was emptied and the scope was removed. This concluded the end of the case. All counts were correct at the end of the case. I was present, scrubbed, and actively participated for the entirety of the procedure. I attest to the content of the Intraoperative Record and any orders documented therein. Any exceptions are noted below.
--- NOTE | 2022-02-15 09:24 | Anesthesiology Progress Note ---
Date of Service February 15, 2022 Anesthesia Post Procedure Vital Signs Vital Signs: Temp Pulse Pulse Pulse Resp BP BP 02/15/22 09:20 37.3 C 81 16 140/67 02/15/22 09:10 82 12 136/69 02/15/22 09:04 36.8 C 86 13 143/71 H 02/15/22 07:46 37.8 C H 90 18 131/72 02/15/22 07:20 81 02/15/22 03:17 37.4 C 99 H 16 118/69 02/14/22 22:46 38.7 C H 93 H 17 159/72 H 02/14/22 22:00 39.1 C H 99 H 20 156/76 H 02/14/22 21:45 97 H 02/14/22 21:23 95 H 12 139/89 02/14/22 19:00 69 19 170/100 H 02/14/22 17:00 37.6 C H 85 17 170/100 H 02/14/22 16:13 02/14/22 16:00 37.3 C 99 H 18 Pulse Ox 02/15/22 09:20 93 02/15/22 09:10 100 02/15/22 09:04 98 02/15/22 07:46 95 02/15/22 07:20 02/15/22 03:17 96 02/14/22 22:46 97 02/14/22 22:00 95 02/14/22 21:45 02/14/22 21:23 95 02/14/22 19:00 95 02/14/22 17:00 02/14/22 16:13 95 02/14/22 16:00 96 Transfer of Care Handoff Completed per policy Notes Mental Status: alert / awake / arousable Patient Amnestic to Procedure: Yes Nausea / Vomiting: adequately controlled Pain: adequately controlled Airway Patency, RR, SpO2: stable & adequate BP & HR: stable & adequate Hydration State: stable & adequate Anesthetic Complications: no major complications apparent
[2022-02-15 09:28] LABS: Estimated Average Glucose 192 mg/dl; Hemoglobin A1C 8.3 % (4.5-5.6)
--- NOTE | 2022-02-15 09:29 | Fluoroscopy Report ---
FL retrograde includes kub CLINICAL HISTORY: RT STENT TECHNIQUE: 6 views were obtained with the C-arm in the OR with the above procedure. Total fluoroscopy time was 16.7 seconds. Total skin dose was 4.06 mGy. Comparison: None available at the time of this dictation. FINDINGS/IMPRESSION: Intraoperative images were obtained of retrograde ureterogram with stent placeme nt. Please correlate with intraoperative fluoroscopy and operative report. ACT 112: Negative or not required by law. Electronically signed by: Breezy Michelle M.D. 02/15/2022 9:27 AM
[2022-02-15] MEDS: FLUCONAZOLE 200 MG/100 ML BAG IV SCH (10:45)
[2022-02-15] MEDS ORDERED: OXYBUTYNIN CHLORIDE 5 MG TAB PO PRN (12:41)
[2022-02-15] MEDS ORDERED: TAMSULOSIN HCL 0.4 MG CAP PO PRN (12:41)
--- NOTE | 2022-02-15 12:48 | Hospitalist Progress Note ---
Date of Service February 15, 2022 Assessment & Plan (1) Sepsis secondary to UTI: Plan: Presented with fever, tachycardia, leukocytosis, and source of infection being UTI with obstructing right ureteral stone Lactate WNL Now status post right ureteral stent placement to remove obstruction Urine culture with pinpoint growth Blood cultures-pending Leukocytosis now resolved, still with fever today -Continue IV Zosyn -Start Diflucan 200 mg IV once daily given budding yeast in the urine -Follow-up culture results -Tylenol as needed for fevers -Appreciate urology management Continue IV fluids with LR 125 mL's per hour Follow CBC, CMP (2) Sinus pause: Plan: Had a 7.8-second pause on telemetry with some symptoms of feeling "clammy" Check repeat labs now and replace electrolytes as needed Monitor on telemetry and have pacer pads ready as needed Consult cardiology Check ECG (3) Hydronephrosis with urinary obstruction due to ureteral calculus: Plan: Now status post cystoscopy and ureteral stent placement (4) Constipation: Plan: No bowel movement for 4 days prior to admission-likely ileus secondary to ureteral stone Had a bowel movement on the evening of 4/5 Start MiraLAX daily and bisacodyl AR daily as needed (5) Diabetes mellitus: Plan: Hemoglobin A1C uncontrolled at 8.3% He does not check his blood sugars at home Appreciate diabetes education given-he was given a glucometer Hold metformin Insulin sliding scale for correction only-tighten down correction factor and carb ratio -will add Lantus if requiring regular correction (6) Multiple sclerosis: Plan: Notable history of this, not on any medications Has primary progressive MS and has not seen neurology many years as he does not think there is anything that can be done for him Has weakness in legs mostly but is able to ambulate (7) Neurogenic bladder: Plan: Require self-catheterization intermittently at home Plan: VTE Prophylaxis -add SCDs, Lovenox now that stent is placed Disposition - continued stay in PCU Admission and Anticipated Discharge Date Admission Date: February 14, 2022 Subjective Patient reports feeling better after stent placement. No abdominal pain or back pain. No chest pain or shortness of breath. He did move his bowels once yesterday evening after admission. He has tried to urinate several times and cannot get his urine out. He typically self catheterizes at home on occasion but more frequently in the last few days since the constipation started. He is requesting of a Nunez catheter placed to avoid repeated catheterizations Later on the evening, he had a 7.8-second sinus pause on telemetry and felt a little bit "clammy" with it but did not have any lightheadedness or other symptoms. Otherwise, has been normal sinus rhythm with rates in the 80s to 90s. I discussed his care with urology and cardiology Review of Systems Review of Systems: All systems reviewed & are unremarkable except as noted in HPI & below Physical Exam Constitutional: WD/WN, vitals as above Eyes: + anicteric sclerae Neck: trachea midline, no thyromegaly Respiratory: normal respiratory effort, lungs clear to auscultation Cardiovascular: RRR, no murmur, no edema Chest (Breasts): Chest: normal inspection of chest Gastrointestinal (Abdomen): normal bowel sounds, soft, nontender, no hepatosplenomegaly Musculoskeletal: Extremities: extremities normal to inspection; no cyanosis and no clubbing Skin: no rashes, warm and dry Neurologic: moves all extremities and awake; no focal motor deficits Psychiatric: A+Ox3, euthymic affect Lymphatic: no lymphedema Results & Data Results & Data ([facility]) Vital Signs (Past 12 Hours) Vital Signs Temp Pulse Pulse Pulse Resp BP BP 02/15/22 11:18 80 17 138/76 02/15/22 10:48 82 16 144/73 H 02/15/22 10:18 36.6 C 85 18 117/67 02/15/22 09:55 83 16 148/77 H 02/15/22 09:40 37.6 C H 81 16 130/67 02/15/22 09:20 37.3 C 81 16 140/67 02/15/22 09:10 82 12 136/69 02/15/22 09:04 36.8 C 86 13 143/71 H 02/15/22 07:46 37.8 C H 90 18 131/72 02/15/22 07:20 81 02/15/22 03:17 37.4 C 99 H 16 118/69 Pulse Ox 02/15/22 11:18 02/15/22 10:48 95 02/15/22 10:18 92 02/15/22 09:55 94 02/15/22 09:40 94 02/15/22 09:20 93 02/15/22 09:10 100 04/06/22 09:04 98 02/15/22 07:46 95 02/15/22 07:20 02/15/22 03:17 96 Laboratory Results 02/15/22 02/15/22 02/15/22 Range/Units 18:11 18:11 16:23 WBC (4.8-10.8) K/uL RBC (4.7-6.1) M/uL Hgb (14.0-18.0) g/dL Hct (42-52) % MCV (80-100) fL MCH (25-34) pg MCHC (32-36) g/dL RDW Std Deviation (36.4-46.3) fL RDW Coeff of Blanche (11.5-14.5) % Plt Count (130-400) K/uL MPV (7.4-10.4) fL Immature Gran % (Auto) % Neut % (Auto) % Lymph % (Auto) % Benson % (Auto) % Eos % (Auto) % Baso % (Auto) % Neut # (Auto) (1.4-6.5) K/uL Lymph # (Auto) (1.2-3.4) K/uL Benson # (Auto) (0.11-0.59) K/uL Eos # (Auto) (0-0.5) K/uL Baso # (Auto) (0-0.2) K/uL Immature Gran # (Auto) (0.00-0.02) K/uL Sodium Pending (136-145) mmol/L Potassium Pending (3.5-5.1) mmol/L Chloride Pending (98-107) mmol/L Carbon Dioxide Pending (21-32) mmol/L Anion Gap Pending (3-11) BUN Pending (6-23) mg/dl Creatinine Pending (0.6-1.4) mg/dl Est Cr Clr Drug Dosing Pending ml/min Est GFR ( Amer) Pending ml/min Est GFR (Non-Af Amer) Pending ml/min BUN/Creatinine Ratio Pending (10-20) Glucose Pending (70-99(Fasting)) mg/dl POC Glucose 166 H (70-99) mg/dl Estimat Average Glucose mg/dl Hemoglobin A1c (4.5-5.6) % Lactate (0.4-2.0) mmol/L Calcium Pending (8.5-10.1) mg/dl Magnesium Pending Cancelled SARS-CoV-2, RNA, NAAT (NEGATIVE) 02/15/22 02/15/22 02/15/22 Range/Units 11:28 10:16 09:06 WBC (4.8-10.8) K/uL RBC (4.7-6.1) M/uL Hgb (14.0-18.0) g/dL Hct (42-52) % MCV (80-100) fL MCH (25-34) pg MCHC (32-36) g/dL RDW Std Deviation (36.4-46.3) fL RDW Coeff of Blanche (11.5-14.5) % Plt Count (130-400) K/uL MPV (7.4-10.4) fL Immature Gran % (Auto) % Neut % (Auto) % Lymph % (Auto) % Benson % (Auto) % Eos % (Auto) % Baso % (Auto) % Neut # (Auto) (1.4-6.5) K/uL Lymph # (Auto) (1.2-3.4) K/uL Benson # (Auto) (0.11-0.59) K/uL Eos # (Auto) (0-0.5) K/uL Baso # (Auto) (0-0.2) K/uL Immature Gran # (Auto) (0.00-0.02) K/uL Sodium (136-145) mmol/L Potassium (3.5-5.1) mmol/L Chloride (98-107) mmol/L Carbon Dioxide (21-32) mmol/L Anion Gap (3-11) BUN (6-23) mg/dl Creatinine (0.6-1.4) mg/dl Est Cr Clr Drug Dosing ml/min Est GFR ( Amer) ml/min Est GFR (Non-Af Amer) ml/min BUN/Creatinine Ratio (10-20) Glucose (70-99(Fasting)) mg/dl POC Glucose 187 H 152 H 167 H (70-99) mg/dl Estimat Average Glucose mg/dl Hemoglobin A1c (4.5-5.6) % Lactate (0.4-2.0) mmol/L Calcium (8.5-10.1) mg/dl Magnesium SARS-CoV-2, RNA, NAAT (NEGATIVE) 02/15/22 02/15/22 02/15/22 Range/Units 07:48 07:33 07:25 WBC (4.8-10.8) K/uL RBC (4.7-6.1) M/uL Hgb (14.0-18.0) g/dL Hct (42-52) % MCV (80-100) fL MCH (25-34) pg MCHC (32-36) g/dL RDW Std Deviation (36.4-46.3) fL RDW Coeff of Blanche (11.5-14.5) % Plt Count (130-400) K/uL MPV (7.4-10.4) fL Immature Gran % (Auto) % Neut % (Auto) % Lymph % (Auto) % Benson % (Auto) % Eos % (Auto) % Baso % (Auto) % Neut # (Auto) (1.4-6.5) K/uL Lymph # (Auto) (1.2-3.4) K/uL Benson # (Auto) (0.11-0.59) K/uL Eos # (Auto) (0-0.5) K/uL Baso # (Auto) (0-0.2) K/uL Immature Gran # (Auto) (0.00-0.02) K/uL Sodium (136-145) mmol/L Potassium (3.5-5.1) mmol/L Chloride (98-107) mmol/L Carbon Dioxide (21-32) mmol/L Anion Gap (3-11) BUN (6-23) mg/dl Creatinine (0.6-1.4) mg/dl Est Cr Clr Drug Dosing ml/min Est GFR ( Amer) ml/min Est GFR (Non-Af Amer) ml/min BUN/Creatinine Ratio (10-20) Glucose (70-99(Fasting)) mg/dl POC Glucose 156 H 174 H (70-99) mg/dl Estimat Average Glucose 192 mg/dl Hemoglobin A1c 8.3 H (4.5-5.6) % Lactate (0.4-2.0) mmol/L Calcium (8.5-10.1) mg/dl Magnesium SARS-CoV-2, RNA, NAAT (NEGATIVE) 02/15/22 02/15/22 02/15/22 Range/Units 07:25 07:25 06:14 WBC 10.13 (4.8-10.8) K/uL RBC 3.65 L (4.7-6.1) M/uL Hgb 11.9 L (14.0-18.0) g/dL Hct 35.2 L (42-52) % MCV 96.4 (80-100) fL MCH 32.6 (25-34) pg MCHC 33.8 (32-36) g/dL RDW Std Deviation 44.7 (36.4-46.3) fL RDW Coeff of Blanche 12.7 (11.5-14.5) % Plt Count 194 (130-400) K/uL MPV 9.7 (7.4-10.4) fL Immature Gran % (Auto) 0.1 % Neut % (Auto) 84.7 % Lymph % (Auto) 6.1 % Benson % (Auto) 8.9 % Eos % (Auto) 0.1 % Baso % (Auto) 0.1 % Neut # (Auto) 8.58 H (1.4-6.5) K/uL Lymph # (Auto) 0.62 L (1.2-3.4) K/uL Benson # (Auto) 0.90 H (0.11-0.59) K/uL Eos # (Auto) 0.01 (0-0.5) K/uL Baso # (Auto) 0.01 (0-0.2) K/uL Immature Gran # (Auto) 0.01 (0.00-0.02) K/uL Sodium 135 L (136-145) mmol/L Potassium 3.6 (3.5-5.1) mmol/L Chloride 103 (98-107) mmol/L Carbon Dioxide 26 (21-32) mmol/L Anion Gap 6 (3-11) BUN 12 (6-23) mg/dl Creatinine 0.85 (0.6-1.4) mg/dl Est Cr Clr Drug Dosing 87.1 ml/min Est GFR ( Amer) 104.5 ml/min Est GFR (Non-Af Amer) 90.2 ml/min BUN/Creatinine Ratio 14.1 (10-20) Glucose 179 H (70-99(Fasting)) mg/dl POC Glucose 217 H (70-99) mg/dl Estimat Average Glucose mg/dl Hemoglobin A1c (4.5-5.6) % Lactate (0.4-2.0) mmol/L Calcium 8.3 L (8.5-10.1) mg/dl Magnesium SARS-CoV-2, RNA, NAAT (NEGATIVE) 02/14/22 02/14/22 02/14/22 Range/Units 22:47 19:30 19:00 WBC (4.8-10.8) K/uL RBC (4.7-6.1) M/uL Hgb (14.0-18.0) g/dL Hct (42-52) % MCV (80-100) fL MCH (25-34) pg MCHC (32-36) g/dL RDW Std Deviation (36.4-46.3) fL RDW Coeff of Blanche (11.5-14.5) % Plt Count (130-400) K/uL MPV (7.4-10.4) fL Immature Gran % (Auto) % Neut % (Auto) % Lymph % (Auto) % Benson % (Auto) % Eos % (Auto) % Baso % (Auto) % Neut # (Auto) (1.4-6.5) K/uL Lymph # (Auto) (1.2-3.4) K/uL Benson # (Auto) (0.11-0.59) K/uL Eos # (Auto) (0-0.5) K/uL Baso # (Auto) (0-0.2) K/uL Immature Gran # (Auto) (0.00-0.02) K/uL Sodium (136-145) mmol/L Potassium (3.5-5.1) mmol/L Chloride (98-107) mmol/L Carbon Dioxide (21-32) mmol/L Anion Gap (3-11) BUN (6-23) mg/dl Creatinine (0.6-1.4) mg/dl Est Cr Clr Drug Dosing ml/min Est GFR ( Amer) ml/min Est GFR (Non-Af Amer) ml/min BUN/Creatinine Ratio (10-20) Glucose (70-99(Fasting)) mg/dl POC Glucose 219 H (70-99) mg/dl Estimat Average Glucose mg/dl Hemoglobin A1c (4.5-5.6) % Lactate 1.2 (0.4-2.0) mmol/L Calcium (8.5-10.1) mg/dl Magnesium SARS-CoV-2, RNA, NAAT NEGATIVE (NEGATIVE) PG Care Time/CCT Total # of Minutes Spent Total Time Spent with Patient: Total time spent is greater than 50% in coordination of care (as documented) at patient's floor/unit and/or counseling patient: Coding Level of Care Code 34523 Subseq Hosp Care Lvl 3 Diagnoses Sepsis secondary to UTI A41.9; N39.0 Hydronephrosis with urinary obstruction due to ureteral calculus N13.2 Constipation K59.00 Diabetes mellitus E11.9 Multiple sclerosis G35 Neurogenic bladder N31.9 Sinus pause I45.5
[2022-02-15] MEDS: ACETAMINOPHEN 325 MG TAB PO PRN (16:00)
[2022-02-15] MEDS ORDERED: bisacodyL 10 MG SUPP PR PRN (18:15)
[2022-02-15 18:20] LABS: Basophils # (auto) 0.02 K/uL (0-0.2); Basophils % (auto) 0.2 %; Eosinophils # (auto) 0.05 K/uL (0-0.5); Eosinophils % (auto) 0.6 %; Hematocrit (blood only) 34.1 % (42-52); Hemoglobin 11.5 g/dL (14.0-18.0); Immature Granulocytes # (auto) 0.03 K/uL (0.00-0.02); Immature Granulocytes % (auto) 0.3 %; Lymphocytes # (auto) 0.75 K/uL (1.2-3.4); Lymphocytes % (auto) 8.5 %; Mean Corpuscular Hemoglobin 32.9 pg (25-34); Mean Corpuscular Hgb Conc 33.7 g/dL (32-36); Mean Corpuscular Volume 97.4 fL (80-100); Mean Platelet Volume 9.5 fL (7.4-10.4); Monocytes # (auto) 1.09 K/uL (0.11-0.59); Monocytes % (auto) 12.3 %; Neutrophils # (auto) 6.89 K/uL (1.4-6.5); Neutrophils % (auto) 78.1 %; Platelet Count 167 K/uL (130-400); RDW Coefficient of Variation 12.8 % (11.5-14.5); RDW Standard Deviation 45.2 fL (36.4-46.3); White Blood Count 8.83 K/uL (4.8-10.8)
[2022-02-15 18:42] LABS: BUN Creatinine Ratio 16.3 (10-20); Creatinine Clr Calc Pharmacy 80.4 ml/min; Est GFR (African American) 99.4 ml/min; Est GFR (Non-African American) 85.8 ml/min; Magnesium 1.6 mg/dl (1.7-2.4); Potassium 3.7 mmol/L (3.5-5.1)
[2022-02-15] MEDS ORDERED: Nursing to Pharmacy Communication SCH (19:30)
[2022-02-15] MEDS ORDERED: POTASSIUM CHLORIDE CRTAB 20 MEQ TABCR PO STA (20:07)
[2022-02-15] MEDS: POLYETHYLENE (MIRALAX) 17 GM PACK PO SCH (20:41)
[2022-02-15] MEDS: MAGNESIUM SULFATE / D5W 1 GM/100 ML BAG IV SCH ×2 (20:55→22:49)
[2022-02-15] MEDS: ENOXAPARIN INJ 40 MG/0.4 ML SYR SQ SCH (21:07)
[2022-02-16] MEDS: LACTATED RINGER'S 1,000 ML IV SCH ×3 (00:35→17:03)
[2022-02-16] MEDS: PIPERACILLIN/TAZOBACTAM 3.375 GM in DEXTROSE 5% 100 ML IV SCH ×3 (03:09→19:53)
[2022-02-16] MEDS: ACETAMINOPHEN 325 MG TAB PO PRN ×3 (04:26→19:52)
[2022-02-16 06:16] LABS: Basophils # (auto) 0.02 K/uL (0-0.2); Basophils % (auto) 0.2 %; Eosinophils # (auto) 0.11 K/uL (0-0.5); Eosinophils % (auto) 1.3 %; Hemoglobin 11.6 g/dL (14.0-18.0); Immature Granulocytes # (auto) 0.02 K/uL (0.00-0.02); Immature Granulocytes % (auto) 0.2 %; Lymphocytes # (auto) 0.82 K/uL (1.2-3.4); Lymphocytes % (auto) 9.3 %; Mean Corpuscular Hemoglobin 32.4 pg (25-34); Mean Corpuscular Hgb Conc 33.1 g/dL (32-36); Mean Corpuscular Volume 97.8 fL (80-100); Mean Platelet Volume 9.9 fL (7.4-10.4); Monocytes # (auto) 1.19 K/uL (0.11-0.59); Monocytes % (auto) 13.6 %; Neutrophils # (auto) 6.62 K/uL (1.4-6.5); Neutrophils % (auto) 75.4 %; Platelet Count 184 K/uL (130-400); RDW Coefficient of Variation 12.7 % (11.5-14.5); RDW Standard Deviation 46.2 fL (36.4-46.3); Red Blood Count 3.58 M/uL (4.7-6.1); White Blood Count 8.78 K/uL (4.8-10.8)
[2022-02-16 06:44] LABS: Albumin Globulin Ratio 1.2 (0.9-2); BUN Creatinine Ratio 16.3 (10-20); Bilirubin,Total 0.9 mg/dl (0.2-1.0); Creatinine Clr Calc Pharmacy 92.5 ml/min; Est GFR (African American) 107.1 ml/min; Est GFR (Non-African American) 92.4 ml/min; Globulin 2.5 gm/dl (2.5-4.0); Magnesium 1.8 mg/dl (1.7-2.4); Total Protein 5.5 gm/dl (6.0-8.3)
--- NOTE | 2022-02-16 06:55 | Electrocardiogram Report ---
Test Reason : Blood Pressure : / mmHG Vent. Rate : 082 BPM Atrial Rate : 082 BPM P-R Int : 156 ms QRS Dur : 092 ms QT Int : 362 ms P-R-T Axes : 063 005 040 degrees QTc Int : 422 ms Normal sinus rhythm Normal ECG When compared with ECG of 14-AUG-1994 08:26, No significant change Confirmed by Bucky Philippe [id number]) on 02/16/2022 6:54:32 AM Referred By: REFERRED SELF Confirmed By:Bucky Philippe
[2022-02-16] MEDS: INSULIN ASPART PER UNIT SC SCH ×4 (07:54→20:38)
[2022-02-16] MEDS: POLYETHYLENE (MIRALAX) 17 GM PACK PO SCH (07:59)
--- NOTE | 2022-02-16 08:33 | Urology Progress Note ---
Date of Service February 16, 2022 Assessment & Plan (1) Urinary tract infection: (2) Kidney stone on right side: Plan: 66-year-old male with a history of MS and neurogenic bladder. He presented to the hospital with right flank pain and was found to have a right proximal ureteral calculus and concern for infection. - POD #1 s/p Cystoscopy, Right Ureteral Stent Placement, Right retrograde pyelogram with radiographic interpretationwith Dr. Crowell. - Subjectively feeling better today, no reported pain. - Afebrile, no fever since yesterday afternoon -38.4 on 02/15 at 1611 - Labs reviewed - Wbc 8.78, Creatinine 0.80 - Urine culture with pinpoint growth, blood cultures pending - Continues on IV Zosyn and Fluconazole added yesterday for budding yeast in the urine, follow cultures. - Nunez catheter inserted yesterday per patient request to avoid repeated catheterizations, currently draining marco colored urine. - OK to remove Nunez catheter prior to discharge and patient can resume self- catheterization intermittently at home. - Continue supportive care and antibiotic therapy. - Will arrange outpatient follow-up with our service for stone management after infection has resolved. - Recommend d/c per primary team when medically stable with course of PO anti biotics per final cultures, Tamsulosin, and prn pain medication for stent management as needed. - Thank you for allowing us to participate in the acute care of Mr. Perez. Please reconsult us with additional questions, concerns or changes in patient status. Admission and Anticipated Discharge Date Admission Date: February 14, 2022 Supervising Physician Co-Signing Physician Notes Discussed patient with DINH. Agree with plan. Subjective Pt examined at bedside this AM. Sitting in bedside chair on arrival. No acute distress. No fevers since yesterday afternoon -38.4 on 02/15 at 1611 Denies abdominal, flank, and back pain at present. Nunez catheter intact, draining marco colored urine. Tolerating diet, no nausea or vomiting. Ambulating without issue. Review of Systems Constitutional: as per Subjective / HPI Gastrointestinal: as per Subjective / HPI Genitourinary: + as per Subjective / HPI Physical Exam Constitutional: cooperative; no acute distress Respiratory: normal respiratory effort; no respiratory distress and no labored breathing Gastrointestinal (Abdomen): Inspection/Auscultation: abdomen normal to inspection Skin: No visible rashes or lesions to exposed skin areas Neurologic: moves all extremities and awake Psychiatric: Orientation: alert and oriented x 3 Genitourinary: no CVA tenderness Nunez catheter intact, draining marco colored urine Results & Data ([facility]) Vital Signs (Past 12 Hours) Vital Signs Temp Pulse Pulse Resp BP Pulse Ox 02/16/22 07:55 36.9 C 65 18 138/84 90 02/16/22 04:18 37.0 C 72 16 134/73 91 02/15/22 23:05 37.2 C 71 20 124/68 91 02/15/22 23:03 65 02/15/22 20:39 36.8 C 65 18 104/55 L 91 PG Care Time/CCT Total # of Minutes Spent Total Time Spent with Patient: Total time spent is greater than 50% in coordination of care (as documented) at patient's floor/unit and/or counseling patient: Coding Level of Care Code 04954 Subseq Hosp Care Lvl 2 Diagnoses Urinary tract infection N39.0 Kidney stone on right side N20.0
[2022-02-16] MEDS ORDERED: MAGNESIUM SULFATE / D5W 1 GM/100 ML BAG IV ONE (09:00)
[2022-02-16] MEDS: FLUCONAZOLE 200 MG/100 ML BAG IV SCH (09:00)
--- NOTE | 2022-02-16 09:24 | Electrocardiogram Report ---
Test Reason : Blood Pressure : / mmHG Vent. Rate : 070 BPM Atrial Rate : 070 BPM P-R Int : 146 ms QRS Dur : 090 ms QT Int : 378 ms P-R-T Axes : 053 012 047 degrees QTc Int : 408 ms Poor data quality, interpretation may be adversely affected Normal sinus rhythm Normal ECG When compared with ECG of 15-FEB-2022 00:11, No significant change was found Confirmed by Jordon Nieves ([id number] on 02/16/2022 9:23:47 AM Referred By: REFERRED SELF Confirmed By:Jordon Nieves
--- NOTE | 2022-02-16 12:16 | Hospitalist Progress Note ---
Date of Service February 16, 2022 Assessment & Plan (1) Sepsis secondary to UTI: Plan: Presented with fever, tachycardia, leukocytosis, and source of infection being UTI with obstructing right ureteral stone Lactate WNL Now status post right ureteral stent placement to remove obstruction Blood cultures from admission growing gram-positive bacilli in 3/4 bottles Urine culture with lactobacillus species and Shyanne albicans Leukocytosis now resolved, still with low-grade fever this evening -Continue IV Zosyn which should cover for gram-positive bacilli -Continue Diflucan 200 mg IV once daily given Shyanne in the urine -Repeat blood cultures -Follow-up final ID and sensitivity of positive blood cultures -Consult infectious disease for further recommendations -Tylenol as needed for fevers -Appreciate urology management -Can decrease IV fluid rate to 70 mL/h of LR Follow CBC, CMP (2) Sinus pause: Plan: Had a 7.8-second pause and another 5-second sinus on telemetry-not symptomatic ECG with normal sinus rhythm normal intervals Appreciate cardiology consultation-suspects vagal event possibly due to recent ureteral manipulation He does have a history of syncope in childhood Replace electrolytes as needed-give IV magnesium again Continue telemetry monitoring Cardiology feels that as long as his symptoms remain asymptomatic and he has no further episodes, no need for long-term monitoring (3) Hydronephrosis with urinary obstruction due to ureteral calculus: Plan: Now status post cystoscopy and ureteral stent placement Will need to follow-up with urology after discharge for stone management after infection resolves Nunez catheter in place so patient does not have to repeatedly straight cath- remove prior to discharge for trial of void but can self catheterize at home -Continue tamsulosin and oxybutynin as needed ureteral stent pain (4) Constipation: Plan: No bowel movement for 4 days prior to admission-likely ileus secondary to ureteral stone Had a bowel movement on the evening of 02/14 and again small and on 02/15 after bisacodyl suppository Continue MiraLAX daily and bisacodyl IN daily as needed (5) Diabetes mellitus: Plan: Hemoglobin A1C uncontrolled at 8.3% He does not check his blood sugars at home Appreciate diabetes education given-he was given a glucometer-Will need test strips and lancets prior to discharge Hold metformin while inpatient Continues with some hyperglycemia today Add Lantus 8 units SQ at bedtime Continue NovoLog sliding scale at current carb ratio and correction factor He will need additional oral medications for improved diabetes control after discharge (6) Multiple sclerosis: Plan: Notable history of this, not on any medications Has primary progressive MS and has not seen neurology many years as he does not think there is anything that can be done for him Has weakness in right leg greater than left leg mostly but is able to ambulate His weakness is improving his fevers are improving but caution for MS flare in the setting of acute infection No need for consult of neurology at this time Consult PT/OT (7) Neurogenic bladder: Plan: Require self-catheterization intermittently at home Presumably secondary to MS (8) Bacteremia: Plan: As above (9) Hypomagnesemia: Plan: Replace with IV magnesium Follow magnesium level in the morning Plan: VTE Prophylaxis - SCDs, Lovenox Disposition - continued stay in PCU Admission and Anticipated Discharge Date Admission Date: February 14, 2022 Subjective Patient reports feeling a little bit better today but slightly lightheaded and still tired. He feels like his right lower extremity weakness is improved from before. Denies chest pains or shortness of breath, no abdominal pain. He did have another small bowel movement today. He is eating and drinking. Telemetry with 2 sinus pauses yesterday-1 7.8 seconds and the other one 5 seconds, none since then and with normal sinus rhythm normal rates. I discussed his case with cardiology. Review of Systems Review of Systems: All systems reviewed & are unremarkable except as noted in HPI & below Physical Exam Constitutional: WD/WN, vitals as above Eyes: + anicteric sclerae Neck: trachea midline, no thyromegaly Respiratory: normal respiratory effort, lungs clear to auscultation Cardiovascular: RRR, no murmur, no edema Chest (Breasts): Chest: normal inspection of chest Gastrointestinal (Abdomen): normal bowel sounds, soft, nontender, no hepatosplenomegaly Musculoskeletal: Extremities: extremities normal to inspection; no cyanosis and no clubbing Skin: no rashes, warm and dry Neurologic: moves all extremities and awake; no focal motor deficits Psychiatric: A+Ox3, euthymic affect Genitourinary: Nunez catheter in place draining clear marco urine Lymphatic: no lymphedema Results & Data Results & Data ([facility]) Vital Signs (Past 12 Hours) Vital Signs Temp Pulse Pulse Resp BP Pulse Ox 02/16/22 11:17 37.0 C 58 L 18 158/76 H 96 0407/22 08:00 66 02/16/22 07:55 36.9 C 65 18 138/84 90 02/16/22 04:18 37.0 C 72 16 134/73 91 Laboratory Results 02/16/22 02/16/22 02/16/22 Range/Units 20:23 16:20 11:30 WBC (4.8-10.8) K/uL RBC (4.7-6.1) M/uL Hgb (14.0-18.0) g/dL Hct (42-52) % MCV (80-100) fL MCH (25-34) pg MCHC (32-36) g/dL RDW Std Deviation (36.4-46.3) fL RDW Coeff of Blanche (11.5-14.5) % Plt Count (130-400) K/uL MPV (7.4-10.4) fL Immature Gran % (Auto) % Neut % (Auto) % Lymph % (Auto) % Park % (Auto) % Eos % (Auto) % Baso % (Auto) % Neut # (Auto) (1.4-6.5) K/uL Lymph # (Auto) (1.2-3.4) K/uL Park # (Auto) (0.11-0.59) K/uL Eos # (Auto) (0-0.5) K/uL Baso # (Auto) (0-0.2) K/uL Immature Gran # (Auto) (0.00-0.02) K/uL Sodium (136-145) mmol/L Potassium (3.5-5.1) mmol/L Chloride (98-107) mmol/L Carbon Dioxide (21-32) mmol/L Anion Gap (3-11) BUN (6-23) mg/dl Creatinine (0.6-1.4) mg/dl Est Cr Clr Drug Dosing ml/min Est GFR ( Amer) ml/min Est GFR (Non-Af Amer) ml/min BUN/Creatinine Ratio (10-20) Glucose (70-99(Fasting)) mg/dl POC Glucose 203 H 156 H 168 H (70-99) mg/dl Calcium (8.5-10.1) mg/dl Magnesium (1.7-2.4) mg/dl Total Bilirubin (0.2-1.0) mg/dl AST (13-39) U/L ALT (7-52) U/L Alkaline Phosphatase (34-104) U/L Total Protein (6.0-8.3) gm/dl Albumin (3.4-5.0) gm/dl Globulin (2.5-4.0) gm/dl Albumin/Globulin Ratio (0.9-2) 02/16/22 02/16/22 02/16/22 Range/Units 07:24 05:41 05:41 WBC 8.78 (4.8-10.8) K/uL RBC 3.58 L (4.7-6.1) M/uL Hgb 11.6 L (14.0-18.0) g/dL Hct 35.0 L (42-52) % MCV 97.8 (80-100) fL MCH 32.4 (25-34) pg MCHC 33.1 (32-36) g/dL RDW Std Deviation 46.2 (36.4-46.3) fL RDW Coeff of Blanche 12.7 (11.5-14.5) % Plt Count 184 (130-400) K/uL MPV 9.9 (7.4-10.4) fL Immature Gran % (Auto) 0.2 % Neut % (Auto) 75.4 % Lymph % (Auto) 9.3 % Park % (Auto) 13.6 % Eos % (Auto) 1.3 % Baso % (Auto) 0.2 % Neut # (Auto) 6.62 H (1.4-6.5) K/uL Lymph # (Auto) 0.82 L (1.2-3.4) K/uL Park # (Auto) 1.19 H (0.11-0.59) K/uL Eos # (Auto) 0.11 (0-0.5) K/uL Baso # (Auto) 0.02 (0-0.2) K/uL Immature Gran # (Auto) 0.02 (0.00-0.02) K/uL Sodium 136 (136-145) mmol/L Potassium 4.0 (3.5-5.1) mmol/L Chloride 103 (98-107) mmol/L Carbon Dioxide 26 (21-32) mmol/L Anion Gap 7 (3-11) BUN 13 (6-23) mg/dl Creatinine 0.80 (0.6-1.4) mg/dl Est Cr Clr Drug Dosing 92.5 ml/min Est GFR ( Amer) 107.1 ml/min Est GFR (Non-Af Amer) 92.4 ml/min BUN/Creatinine Ratio 16.3 (10-20) Glucose 189 H (70-99(Fasting)) mg/dl POC Glucose 185 H (70-99) mg/dl Calcium 8.0 L (8.5-10.1) mg/dl Magnesium 1.8 (1.7-2.4) mg/dl Total Bilirubin 0.9 D (0.2-1.0) mg/dl AST 38 (13-39) U/L ALT 38 (7-52) U/L Alkaline Phosphatase 58 (34-104) U/L Total Protein 5.5 L (6.0-8.3) gm/dl Albumin 3.0 L (3.4-5.0) gm/dl Globulin 2.5 (2.5-4.0) gm/dl Albumin/Globulin Ratio 1.2 (0.9-2) Blood cultures growing gram-positive bacilli in 3/4 bottles Urine culture with lactobacillus species and Shyanne albicans PG Care Time/CCT Total # of Minutes Spent Total Time Spent with Patient: Total time spent is greater than 50% in coordination of care (as documented) at patient's floor/unit and/or counseling patient: Coding Level of Care Code 64518 Subseq Hosp Care Lvl 3 Diagnoses Sepsis secondary to UTI A41.9; N39.0 Sinus pause I45.5 Hydronephrosis with urinary obstruction due to ureteral calculus N13.2 Constipation K59.00 Diabetes mellitus E11.9 Multiple sclerosis G35 Neurogenic bladder N31.9 Bacteremia R78.81 Hypomagnesemia E83.42
--- NOTE | 2022-02-16 17:29 | Cardiology Consultation ---
Date of Consultation February 16, 2022 Assessment & Plan (1) Sinus pause: (2) Vasovagal syncope: 1. Sinus pause: It is unusual to have a sinus pause of that duration as an isolated event, especially since the sinus rate was slow for several beats following the pause but transient sinus slowing is not seen elsewhere on telemetry. I suspect this was a vagal event even though he does not have a specific trigger that he recalls. Since he recently had his ureter manipulated I suspect that is the trigger even though he did not feel discomfort from it. He was not having GI symptoms. If this is vagally induced I would not intervene, especially since it was asymptomatic even though it was quite a long pause. If his telemetry is without further sinus arrhythmias or pauses I would probably not pursue further monitoring. 2. Vasovagal syncope: As a child he tells me he was called a "fainter" and describes relatively frequent vagal episodes, some associated with syncope, some averted by sitting down. That is supportive of this being a vagal event although certainly not diagnostic. History of Present Illness Reason for Consultation: Sinus pause Attending Physician: Tawny Washburn MD History of Present Illness This is a 66-year-old male who has diabetes mellitus and a long history of urinary retention for which he self catheterizes intermittently (he believes this might be due to MS although he is not sure). He had about 4 days of urinary retention and has been using intermittent catheterization, evaluation emergency room showed an obstructing right nephrolithiasis with hydronephrosis. He underwent right ureteral stent placement on February 15, 2022. He was observed on telemetry to have 2 sinus pauses on February 15, 2022 (the first of 7.8 seconds duration at 1745, the second 5 seconds in duration at 1845). He was asymptomatic. On detailed discussion with him it sounds as though he truly had no symptoms with these episodes, he knew he had them because someone came into the room to tell him. He does not recall feeling nauseous, vomiting, having significant pain, etc. He has not been having lightheadedness or dizziness, the episodes suggest a vagal event in that the sinus rate is somewhat slow after the sinus pause and then returns to normal. He has not had presyncope or syncope other than as a child. He tells me that as a child he was a "fainter" by which he means that he frequently would feel like he were going to faint and did faint on occasion but that seemed to resolve in adulthood. He has no other cardiovascular symptoms including exertional symptoms. An electrocardiogram on presentation shows sinus rhythm at 82 bpm and is normal, another electrocardiogram on February 15, 2022 at 1620 (taken between the 2 sinus pauses) shows sinus rhythm at 70 bpm and is also normal. On telemetry his rhythm has been sinus other than these 2 pauses with no significant bradycardia otherwise and the heart rate generally in the 80s. Allergies Allergy/AdvReac Type Severity Reaction Status Date / Time No Known Allergies Allergy Unknown Verified 11/01/21 11:31 Home Medications Medication Instructions Recorded Confirmed Type lisinopril 2.5 mg tablet 2.5 mg PO DAILY 02/14/22 02/14/22 History metformin 750 mg tablet,extended 2,250 mg PO DAILY 02/14/22 02/14/22 History release 24 hr tamsulosin 0.4 mg capsule 0.4 mg PO DAILY 02/14/22 02/14/22 History Patient History Medical History Diabetes mellitus Elevated PSA History of recurrent UTIs Multiple sclerosis Surgical History History of hernia surgery Family History Father Diabetes Hypertension Heart disease Social History Smoking Status: Current every day smoker Tobacco Type: Cigarettes Cigarettes Per Day: 1/2 pack; Tobacco Cessation Education Requested by Patient: No Hx Alcohol Use: Yes Alcohol type: wine Hx Substance Use: No Preferred Language: Azeri Communication Ability: Effective Communication Ability Comment: dificulty writing d/t MS Registry Nurse Required: No Beliefs That Will Affect Care: None marital status: Current Living Situation: Spouse current occupational status: employed 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 Other Information That Helps Us Care for You: No Feels Safe at Home: Yes Safety Concerns: Feels Safe At This Time Assistive Devices: Cane Review of Systems Review of Systems: All systems reviewed & are unremarkable except as noted in HPI & below Results & Data ([facility]) Vital Signs (Past 12 Hours) Vital Signs Temp Pulse Pulse Resp BP BP Pulse Ox 02/16/22 15:27 36.3 C L 74 16 136/69 90 02/16/22 14:00 77 02/16/22 11:17 37.0 C 58 L 18 158/76 H 96 02/16/22 08:00 66 02/16/22 07:55 36.9 C 65 18 138/84 90 PG Care Time/CCT Total # of Minutes Spent Total Time Spent with Patient: Total time spent is greater than 50% in coordination of care (as documented) at patient's floor/unit and/or counseling patient: Coding Level of Care Code 32213 Initial Inpt Care Lvl 3 Diagnoses Sinus pause I45.5 Vasovagal syncope R55
[2022-02-16] MEDS: ENOXAPARIN INJ 40 MG/0.4 ML SYR SQ SCH (19:55)
[2022-02-16] MEDS ORDERED: INSULIN GLARGINE SOLOSTAR 100 UNITS/ML 3 ML PEN SC SCH (21:05)
[2022-02-17] MEDS ORDERED: MELATONIN 3 MG TAB PO PRN (02:12)
[2022-02-17] MEDS: ACETAMINOPHEN 325 MG TAB PO PRN ×4 (02:24→23:24)
[2022-02-17] MEDS: LACTATED RINGER'S 1,000 ML IV SCH ×2 (03:51→15:07)
[2022-02-17] MEDS: PIPERACILLIN/TAZOBACTAM 3.375 GM in DEXTROSE 5% 100 ML IV SCH ×2 (04:31→13:03)
[2022-02-17 06:50] LABS: Basophils # (auto) 0.02 K/uL (0-0.2); Basophils % (auto) 0.2 %; Eosinophils # (auto) 0.08 K/uL (0-0.5); Eosinophils % (auto) 0.8 %; Hematocrit (blood only) 33.6 % (42-52); Hemoglobin 11.5 g/dL (14.0-18.0); Immature Granulocytes # (auto) 0.02 K/uL (0.00-0.02); Immature Granulocytes % (auto) 0.2 %; Lymphocytes # (auto) 1.11 K/uL (1.2-3.4); Lymphocytes % (auto) 11.8 %; Mean Corpuscular Hemoglobin 32.8 pg (25-34); Mean Corpuscular Hgb Conc 34.2 g/dL (32-36); Mean Corpuscular Volume 95.7 fL (80-100); Monocytes % (auto) 10.6 %; Neutrophils # (auto) 7.21 K/uL (1.4-6.5); Neutrophils % (auto) 76.4 %; Platelet Count 204 K/uL (130-400); RDW Coefficient of Variation 12.6 % (11.5-14.5); RDW Standard Deviation 43.7 fL (36.4-46.3); Red Blood Count 3.51 M/uL (4.7-6.1); White Blood Count 9.44 K/uL (4.8-10.8)
[2022-02-17 07:09] LABS: BUN Creatinine Ratio 13.7 (10-20); Calcium 8.3 mg/dl (8.5-10.1); Creatinine Clr Calc Pharmacy 101.4 ml/min; Est GFR (African American) 111.2 ml/min; Magnesium 1.6 mg/dl (1.7-2.4); Potassium 3.6 mmol/L (3.5-5.1)
[2022-02-17] MEDS: INSULIN ASPART PER UNIT SC SCH ×4 (08:12→20:30)
[2022-02-17] MEDS: MAGNESIUM SULFATE / D5W 1 GM/100 ML BAG IV SCH ×2 (09:18→11:03)
[2022-02-17] MEDS: FLUCONAZOLE 200 MG/100 ML BAG IV SCH (09:19)
[2022-02-17] MEDS: POLYETHYLENE (MIRALAX) 17 GM PACK PO SCH (09:22)
[2022-02-17] MEDS ORDERED: FUROSEMIDE INJ 20 MG/2 ML VIAL IV ONE (15:00)
[2022-02-17] MEDS ORDERED: LORazepam 0.5 MG TAB PO PRN (15:01)
--- NOTE | 2022-02-17 15:07 | Hospitalist Progress Note ---
Date of Service February 17, 2022 Assessment & Plan (1) Sepsis secondary to UTI: Plan: Presented with fever, tachycardia, leukocytosis, and source of infection being UTI with obstructing right ureteral stone Lactate WNL Now status post right ureteral stent placement to remove obstruction Blood cultures from admission growing lactobacillus in 3/6 bottles Urine culture with lactobacillus species and Shyanne albicans Repeat blood cultures 02/16-no growth today Leukocytosis now resolved, fevers now resolved as of 02/16 -Was on Zosyn for 3 days, but will now convert to IV ampicillin given ID of lactobacillus -Awaiting ID consult to see if needs IV versus oral antibiotics in the length of course of treatment - continue Diflucan 200 mg IV once daily given Shyanne in the urine -f/u Repeat blood cultures -Tylenol as needed for fevers -Appreciate urology management -DC IV fluids Follow CBC, CMP (2) Sinus pause: Plan: Had a 7.8-second pause and another 5-second sinus on telemetry on 02/15- symptomat ic ECG with normal sinus rhythm normal intervals Appreciate cardiology consultation-suspects vagal event possibly due to recent ureteral manipulation He does have a history of syncope in childhood No further events since then Replace electrolytes as needed-give IV magnesium again today Continue telemetry monitoring Cardiology feels that as long as his symptoms remain asymptomatic and he has no further episodes, no need for long-term monitoring (3) Hydronephrosis with urinary obstruction due to ureteral calculus: Plan: Now status post cystoscopy and ureteral stent placement Will need to follow-up with urology after discharge for stone management after infection resolves Nunez catheter in place so patient does not have to repeatedly straight cath- remove prior to discharge for trial of void but can self catheterize at home -Continue tamsulosin and oxybutynin as needed ureteral stent pain-he has not needed to use these (4) Volume overload: Plan: Feeling short of breath and with bibasilar crackles on 02/17 Stop IV fluids Give Lasix 20 mg IV x1 Not hypoxic (5) Constipation: Plan: No bowel movement for 4 days prior to admission-likely ileus secondary to ureteral stone Had a bowel movement on the evening of 02/14 and again small and on 02/15 after bisacodyl suppository Now had 2 bowel movements on 02/17 Continue MiraLAX daily and bisacodyl CT daily as needed (6) Diabetes mellitus: Plan: Hemoglobin A1C uncontrolled at 8.3% He does not check his blood sugars at home Appreciate diabetes education given-he was given a glucometer-Will need test strips and lancets prior to discharge Hold metformin while inpatient Continues with some hyperglycemia today Increase Lantus to 10 units SQ at bedtime Continue NovoLog sliding scale and lower correction factor to 25 He will need additional oral medications for improved diabetes control after discharge (7) Multiple sclerosis: Plan: Notable history of this, not on any medications Has primary progressive MS and has not seen neurology many years as he does not think there is anything that can be done for him Has weakness in right leg greater than left leg mostly but is able to ambulate He does feel some "brain fog" His weakness is improving his fevers are improving but caution for MS flare in the setting of acute infection No need for consult of neurology at this time Consult PT/OT appreciated (8) Neurogenic bladder: Plan: Require self-catheterization intermittently at home Presumably secondary to MS (9) Bacteremia: Plan: As above (10) Hypomagnesemia: Plan: Replace with IV magnesium Follow magnesium level in the morning (11) Insomnia: Plan: Make melatonin 3 mg at bedtime scheduled and add on lorazepam 0.5 mg p.o. at bedtime as needed insomnia He does report drinking several glasses of wine each night and he has now been in the hospital for 3 nights-this may be contributing to insomnia or anxiety Plan: VTE Prophylaxis - SCDs, Lovenox Disposition - continued stay in PCU, awaiting ID consultation to help plan for final disposition Admission and Anticipated Discharge Date Admission Date: February 14, 2022 Subjective Patient reports still not feeling energetic. He did not sleep well at all last night despite melatonin 3 in the morning and requests something else for sleep. Had some pain in his lower back last evening he thinks from the bed. He also had a mild fever yesterday evening. He is also starting to feel a little bit short of breath. Denies chest pains. He ambulated with PT today and was a bit surprised how weak he was. He is moving his bowels twice today Telemetry with normal sinus rhythm with rates in the 60s to 90s, no sinus pauses. Review of Systems Review of Systems: All systems reviewed & are unremarkable except as noted in HPI & below Physical Exam Constitutional: WD/WN, vitals as above Eyes: + anicteric sclerae Neck: trachea midline, no thyromegaly Respiratory: normal respiratory effort; no cough Auscultation: + crackles (bibasilar); no wheezes Cardiovascular: RRR, no murmur, no edema Chest (Breasts): Chest: normal inspection of chest Gastrointestinal (Abdomen): normal bowel sounds, soft, nontender, no hepatosplenomegaly Musculoskeletal: Extremities: extremities normal to inspection; no cyanosis and no clubbing Skin: no rashes, warm and dry Neurologic: moves all extremities and awake; no focal motor deficits Psychiatric: A+Ox3, euthymic affect Lymphatic: no lymphedema Results & Data Results & Data ([facility]) Vital Signs (Past 12 Hours) Vital Signs Temp Pulse Pulse Resp BP BP Pulse Ox 02/17/22 13:22 91 02/17/22 11:11 36.9 C 68 19 159/83 H 93 02/17/22 07:00 64 02/17/22 06:57 37.1 C 71 20 165/80 H 95 02/17/22 03:18 37.4 C 70 16 150/80 H 95 Laboratory Results 02/17/22 02/17/22 02/17/22 Range/Units 11:09 07:23 05:48 WBC (4.8-10.8) K/uL RBC (4.7-6.1) M/uL Hgb (14.0-18.0) g/dL Hct (42-52) % MCV (80-100) fL MCH (25-34) pg MCHC (32-36) g/dL RDW Std Deviation (36.4-46.3) fL RDW Coeff of Blanche (11.5-14.5) % Plt Count (130-400) K/uL MPV (7.4-10.4) fL Immature Gran % (Auto) % Neut % (Auto) % Lymph % (Auto) % [place] % (Auto) % Eos % (Auto) % Baso % (Auto) % Neut # (Auto) (1.4-6.5) K/uL Lymph # (Auto) (1.2-3.4) K/uL [place] # (Auto) (0.11-0.59) K/uL Eos # (Auto) (0-0.5) K/uL Baso # (Auto) (0-0.2) K/uL Immature Gran # (Auto) (0.00-0.02) K/uL Sodium 135 L (136-145) mmol/L Potassium 3.6 (3.5-5.1) mmol/L Chloride 101 (98-107) mmol/L Carbon Dioxide 27 (21-32) mmol/L Anion Gap 7 (3-11) BUN 10 (6-23) mg/dl Creatinine 0.73 (0.6-1.4) mg/dl Est Cr Clr Drug Dosing 101.4 ml/min Est GFR ( Amer) 111.2 ml/min Est GFR (Non-Af Amer) 96.0 ml/min BUN/Creatinine Ratio 13.7 (10-20) Glucose 144 H (70-99(Fasting)) mg/dl POC Glucose 221 H 149 H (70-99) mg/dl Calcium 8.3 L (8.5-10.1) mg/dl Magnesium 1.6 L (1.7-2.4) mg/dl 02/17/22 02/16/22 02/16/22 Range/Units 05:48 20:23 16:20 WBC 9.44 (4.8-10.8) K/uL RBC 3.51 L (4.7-6.1) M/uL Hgb 11.5 L (14.0-18.0) g/dL Hct 33.6 L (42-52) % MCV 95.7 (80-100) fL MCH 32.8 (25-34) pg MCHC 34.2 (32-36) g/dL RDW Std Deviation 43.7 (36.4-46.3) fL RDW Coeff of Blanche 12.6 (11.5-14.5) % Plt Count 204 (130-400) K/uL MPV 10.0 (7.4-10.4) fL Immature Gran % (Auto) 0.2 % Neut % (Auto) 76.4 % Lymph % (Auto) 11.8 % [place] % (Auto) 10.6 % Eos % (Auto) 0.8 % Baso % (Auto) 0.2 % Neut # (Auto) 7.21 H (1.4-6.5) K/uL Lymph # (Auto) 1.11 L (1.2-3.4) K/uL [place] # (Auto) 1.00 H (0.11-0.59) K/uL Eos # (Auto) 0.08 (0-0.5) K/uL Baso # (Auto) 0.02 (0-0.2) K/uL Immature Gran # (Auto) 0.02 (0.00-0.02) K/uL Sodium (136-145) mmol/L Potassium (3.5-5.1) mmol/L Chloride (98-107) mmol/L Carbon Dioxide (21-32) mmol/L Anion Gap (3-11) BUN (6-23) mg/dl Creatinine (0.6-1.4) mg/dl Est Cr Clr Drug Dosing ml/min Est GFR ( Amer) ml/min Est GFR (Non-Af Amer) ml/min BUN/Creatinine Ratio (10-20) Glucose (70-99(Fasting)) mg/dl POC Glucose 203 H 156 H (70-99) mg/dl Calcium (8.5-10.1) mg/dl Magnesium (1.7-2.4) mg/dl Blood cultures with lactobacillus PG Care Time/CCT Total # of Minutes Spent Total Time Spent with Patient: Total time spent is greater than 50% in coordination of care (as documented) at patient's floor/unit and/or counseling patient: Coding Level of Care Code 51434 Subseq Hosp Care Lvl 3 Diagnoses Sepsis secondary to UTI A41.9; N39.0 Sinus pause I45.5 Hydronephrosis with urinary obstruction due to ureteral calculus N13.2 Constipation K59.00 Diabetes mellitus E11.9 Multiple sclerosis G35 Neurogenic bladder N31.9 Bacteremia R78.81 Hypomagnesemia E83.42 Volume overload E87.70 Insomnia G47.00
--- NOTE | 2022-02-17 15:07 | Cardiology Progress Note ---
Date of Service February 17, 2022 Assessment & Plan (1) Sinus pause: (2) Vasovagal syncope: Plan: 1. Sinus pause: It is unusual to have a sinus pause of that duration as an isolated event, especially since the sinus rate was slow for several beats following the pause but transient sinus slowing is not seen elsewhere on telemetry. I suspect this was a vagal event even though he does not have a specific trigger that he recalls. Since he recently had his ureter manipulated I suspect that is the trigger even though he did not feel discomfort from it. He was not having GI symptoms. If this is vagally induced I would not intervene, especially since it was asymptomatic even though it was quite a long pause. He has had no further pauses on telemetry. If his telemetry remains without further sinus arrhythmias or pauses I would probably not pursue further monitoring. 2. Vasovagal syncope: As a child he tells me he was called a "fainter" and describes relatively frequent vagal episodes, some associated with syncope, some averted by sitting down. That is supportive of this being a vagal event although certainly not diagnostic. Admission and Anticipated Discharge Date Admission Date: February 14, 2022 Results & Data ([facility]) Vital Signs (Past 12 Hours) Vital Signs Temp Pulse Pulse Resp BP BP Pulse Ox 02/17/22 13:22 91 02/17/22 11:11 36.9 C 68 19 159/83 H 93 02/17/22 07:00 64 02/17/22 06:57 37.1 C 71 20 165/80 H 95 02/17/22 03:18 37.4 C 70 16 150/80 H 95 Diagnostic Findings Telemetry: No further pauses, sinus rhythm throughout PG Care Time/CCT Total # of Minutes Spent Total Time Spent with Patient: Total time spent is greater than 50% in coordination of care (as documented) at patient's floor/unit and/or counseling patient: Coding Level of Care Code 83496 Subseq Hosp Care Lvl 1 Diagnoses Sinus pause I45.5 Vasovagal syncope R55
[2022-02-17] MEDS: AMPICILLIN 2,000 MG in SODIUM CHLOR 0.9% AD-VAN 100 ML IV SCH ×3 (16:00→23:19)
[2022-02-17] MEDS ORDERED: MELATONIN 3 MG TAB PO SCH (20:00)
[2022-02-17] MEDS: ENOXAPARIN INJ 40 MG/0.4 ML SYR SQ SCH (20:31)
[2022-02-17] MEDS ORDERED: INSULIN GLARGINE SOLOSTAR 100 UNITS/ML 3 ML PEN SC SCH (21:00)
[2022-02-18] MEDS: AMPICILLIN 2,000 MG in SODIUM CHLOR 0.9% AD-VAN 100 ML IV SCH ×3 (04:20→11:03)
[2022-02-18] MEDS: ACETAMINOPHEN 325 MG TAB PO PRN (06:48)
[2022-02-18 07:10] LABS: Basophils # (auto) 0.02 K/uL (0-0.2); Basophils % (auto) 0.3 %; Eosinophils # (auto) 0.13 K/uL (0-0.5); Eosinophils % (auto) 1.6 %; Hemoglobin 11.7 g/dL (14.0-18.0); Immature Granulocytes # (auto) 0.03 K/uL (0.00-0.02); Immature Granulocytes % (auto) 0.4 %; Lymphocytes # (auto) 1.27 K/uL (1.2-3.4); Lymphocytes % (auto) 16.1 %; Mean Corpuscular Hemoglobin 33.1 pg (25-34); Mean Corpuscular Hgb Conc 35.5 g/dL (32-36); Mean Corpuscular Volume 93.5 fL (80-100); Mean Platelet Volume 9.5 fL (7.4-10.4); Monocytes # (auto) 0.98 K/uL (0.11-0.59); Monocytes % (auto) 12.4 %; Neutrophils # (auto) 5.48 K/uL (1.4-6.5); Neutrophils % (auto) 69.2 %; Platelet Count 238 K/uL (130-400); RDW Coefficient of Variation 12.5 % (11.5-14.5); RDW Standard Deviation 42.6 fL (36.4-46.3); Red Blood Count 3.53 M/uL (4.7-6.1); White Blood Count 7.91 K/uL (4.8-10.8)
[2022-02-18] MEDS: INSULIN ASPART PER UNIT SC SCH ×2 (07:36→11:44)
[2022-02-18] MEDS: POLYETHYLENE (MIRALAX) 17 GM PACK PO SCH (07:37)
[2022-02-18 08:02] LABS: BUN Creatinine Ratio 12.3 (10-20); Bilirubin,Total 0.9 mg/dl (0.2-1.0); Calcium 8.5 mg/dl (8.5-10.1); Creatinine Clr Calc Pharmacy 113.9 ml/min; Est GFR (African American) 116.7 ml/min; Est GFR (Non-African American) 100.7 ml/min; Globulin 2.9 gm/dl (2.5-4.0); Magnesium 1.7 mg/dl (1.7-2.4); Potassium 3.1 mmol/L (3.5-5.1); Total Protein 5.9 gm/dl (6.0-8.3)
[2022-02-18] MEDS: MAGNESIUM SULFATE / D5W 1 GM/100 ML BAG IV SCH ×2 (08:55→10:59)
[2022-02-18] MEDS: FLUCONAZOLE 200 MG/100 ML BAG IV SCH (08:55)
[2022-02-18] MEDS: POTASSIUM CHLORIDE CRTAB 20 MEQ TABCR PO SCH ×2 (08:55→15:23)
[2022-02-18] MEDS ORDERED: lisinopril 2.5 MG TAB PO SCH (13:15)
[2022-02-18] MEDS ORDERED: CLOTRIMAZOLE 1% CR 15 GM TUBE EXT SCH (13:35)
--- NOTE | 2022-02-18 13:38 | Hospitalist Progress Note ---
Date of Service February 18, 2022 Assessment & Plan (1) Sepsis secondary to UTI: Plan: Presented with fever, tachycardia, leukocytosis, and source of infection being UTI with obstructing right ureteral stone Lactate WNL Now status post right ureteral stent placement to remove obstruction Blood cultures from admission growing lactobacillus in 3/6 bottles Urine culture with lactobacillus species and Shyanne albicans Repeat blood cultures 02/16-no growth today Leukocytosis now resolved, fevers now resolved as of 02/16 -Was on Zosyn for 3 days, but will now convert to IV ampicillin given ID of lactobacillus -Awaiting ID consult to see if needs IV versus oral antibiotics in the length of course of treatment - continue Diflucan 200 mg IV once daily given Shyanne in the urine -f/u Repeat blood cultures -Tylenol as needed for fevers -Appreciate urology management -DC IV fluids Follow CBC, CMP (2) Sinus pause: Plan: Had a 7.8-second pause and another 5-second sinus on telemetry on 02/15- symptomat ic ECG with normal sinus rhythm normal intervals Appreciate cardiology consultation-suspects vagal event possibly due to recent ureteral manipulation He does have a history of syncope in childhood No further events since then Replace electrolytes as needed-give IV magnesium again today Continue telemetry monitoring Cardiology feels that as long as his symptoms remain asymptomatic and he has no further episodes, no need for long-term monitoring (3) Hydronephrosis with urinary obstruction due to ureteral calculus: Plan: Now status post cystoscopy and ureteral stent placement Will need to follow-up with urology after discharge for stone management after infection resolves Nunez catheter in place so patient does not have to repeatedly straight cath- remove prior to discharge for trial of void but can self catheterize at home -Continue tamsulosin and oxybutynin as needed ureteral stent pain-he has not needed to use these (4) Volume overload: Plan: Feeling short of breath and with bibasilar crackles on 02/17 Stop IV fluids Give Lasix 20 mg IV x1 Not hypoxic (5) Constipation: Plan: No bowel movement for 4 days prior to admission-likely ileus secondary to ureteral stone Had a bowel movement on the evening of 02/14 and again small and on 02/15 after bisacodyl suppository Now had 2 bowel movements on 02/17 Continue MiraLAX daily and bisacodyl CT daily as needed (6) Diabetes mellitus: Plan: Hemoglobin A1C uncontrolled at 8.3% He does not check his blood sugars at home Appreciate diabetes education given-he was given a glucometer-Will need test strips and lancets prior to discharge Hold metformin while inpatient Continues with some hyperglycemia today Increase Lantus to 10 units SQ at bedtime Continue NovoLog sliding scale and lower correction factor to 25 He will need additional oral medications for improved diabetes control after discharge (7) Multiple sclerosis: Plan: Notable history of this, not on any medications Has primary progressive MS and has not seen neurology many years as he does not think there is anything that can be done for him Has weakness in right leg greater than left leg mostly but is able to ambulate He does feel some "brain fog" His weakness is improving his fevers are improving but caution for MS flare in the setting of acute infection No need for consult of neurology at this time Consult PT/OT appreciated (8) Neurogenic bladder: Plan: Require self-catheterization intermittently at home Presumably secondary to MS (9) Bacteremia: Plan: As above (10) Hypomagnesemia: Plan: Replace with IV magnesium Follow magnesium level in the morning (11) Insomnia: Plan: Make melatonin 3 mg at bedtime scheduled and add on lorazepam 0.5 mg p.o. at bedtime as needed insomnia He does report drinking several glasses of wine each night and he has now been in the hospital for 3 nights-this may be contributing to insomnia or anxiety Plan: VTE Prophylaxis - SCDs, Lovenox Disposition - continued stay in PCU, awaiting ID consultation to help plan for final disposition Admission and Anticipated Discharge Date Admission Date: February 14, 2022 Physical Exam Constitutional: WD/WN, vitals as above Eyes: + anicteric sclerae Neck: trachea midline, no thyromegaly Respiratory: normal respiratory effort, lungs clear to auscultation normal respiratory effort; no cough Auscultation: + crackles (bibasilar); no wheezes Cardiovascular: RRR, no murmur, no edema Chest (Breasts): Chest: normal inspection of chest Gastrointestinal (Abdomen): normal bowel sounds, soft, nontender, no hepatosplenomegaly Musculoskeletal: Extremities: extremities normal to inspection; no cyanosis and no clubbing Skin: no rashes, warm and dry Neurologic: moves all extremities and awake; no focal motor deficits Psychiatric: A+Ox3, euthymic affect Lymphatic: no lymphedema Results & Data Results & Data ([facility]) Vital Signs (Past 12 Hours) Vital Signs Temp Pulse Pulse Resp BP BP Pulse Ox 02/18/22 11:17 36.4 C L 72 20 183/93 H 96 02/18/22 08:00 64 02/18/22 07:04 36.4 C L 66 18 163/79 H 90 02/18/22 05:00 36.9 C 72 18 175/84 H 95 PG Care Time/CCT Total # of Minutes Spent Total Time Spent with Patient: Total time spent is greater than 50% in coordination of care (as documented) at patient's floor/unit and/or counseling patient: Coding Diagnoses Sepsis secondary to UTI A41.9; N39.0 Sinus pause I45.5 Hydronephrosis with urinary obstruction due to ureteral calculus N13.2 Volume overload E87.70 Constipation K59.00 Diabetes mellitus E11.9 Multiple sclerosis G35 Neurogenic bladder N31.9 Bacteremia R78.81 Hypomagnesemia E83.42 Insomnia G47.00
[2022-02-18] MEDS ORDERED: TAMSULOSIN HCL 0.4 MG CAP PO SCH (13:45)
[2022-02-18] MEDS ORDERED: POLYETHYLENE (MIRALAX) 17 GM PACK PO SCH (13:45)
--- NOTE | 2022-02-18 15:01 | Discharge Summary ---
Date of Service February 18, 2022 Admission HPI Per Admitting Provider Frankie Perez 66 year old male who presents to the ER with 4 days of urinary retention and no bowel movements. He has intermittently self catheterized for the last year. He recently underwent prostate biopsy on 01/31/22. No significant problems following the biopsy, only a small amount of blood in urine but otherwise was urinating ok. For the last 4 days however he has been unable to pass urine and using intermittent catheterization. No BM for last 4 days. Tried laxatives before he came here OTC but didn't help. He reports chills all day today but no objective fever. He denies any nausea, vomiting or abdominal pain. He reports lower bilateral back pain. Last drank Gatorade around 10am. Not eaten anything in the last 2 days. With regards to the constipation he reports this is a new thing. Does not usually get constipated. He last had a colonoscopy 1-2 years ago with some polyps. In the ER CT showed an obstructing right nephrolithiasis with associated hydronephrosis. He was given IV ceftriaxone. ER discussed with urology and recommended ureteral stent planned for tomorrow. He was referred to medicine for admission and ongoing management of pyelonephritis and hydronephrosis secondary to kidney stone. Principal Diagnosis Sepsis secondary to UTI, sinus pauses, right-sided ureterolithiasis, constipation Discharge Exam Constitutional WD/WN, vitals as above Eyes + anicteric sclerae Neck trachea midline, no thyromegaly Respiratory normal respiratory effort, lungs clear to auscultation Cardiovascular RRR, no murmur, no edema Chest (Breasts) Chest: normal inspection of chest Gastrointestinal (Abdomen) normal bowel sounds, soft, nontender, no hepatosplenomegaly Musculoskeletal Extremities: extremities normal to inspection; no cyanosis and no clubbing Skin no rashes, warm and dry Neurologic moves all extremities and awake; no focal motor deficits Psychiatric A+Ox3, euthymic affect Lymphatic no lymphedema Discharge Data Allergies Allergy/AdvReac Type Severity Reaction Status Date / Time No Known Allergies Allergy Unknown Verified 11/01/21 11:31 Consultations 02/14/22 18:35 Consult Urology Routine 02/14/22 18:44 ED Decision to Admit Stat 02/15/22 18:03 Consult Cardiology Routine 02/16/22 21:01 Consult Infectious Diseases Routine Procedures Performed Operation Date: 02/15/22 09:50 Actual Procedures p Cystoscopy, Right Ureteral Stent Placement, Right retrograde pyelogram(Right) - Chuckie Crowell MD Ordered Studies 02/14/22 16:13 CT abd pelvis wo con Stat 02/15/22 07:30 FL retrograde includes kub Routine Hospital Course (1) Sepsis secondary to UTI: Presented with fever, tachycardia, leukocytosis, and source of infection being UTI with obstructing right ureteral stone Lactate WNL Now status post right ureteral stent placement to remove obstruction Blood cultures from admission growing lactobacillus in 3/6 bottles (3 sets of blood cultures) Urine culture with lactobacillus species and Shyanne albicans Repeat blood cultures 02/16-no growth over 48 hours Leukocytosis now resolved, fevers now resolved as of 02/16, feeling very well and would like to go home -Was on Zosyn for 3 days, but converted to IV ampicillin given ID of lactobacillus - ID consult not completed prior to discharge but I did reach out to them via [facility] text and since he defervesced quickly and was doing well and repeat blood cultures remained no growth, ID said it was okay to convert to amoxicillin and remain on this until 3 days after his ureteral stone and stent are removed - continue Diflucan 200 mg p.o. once daily given Shyanne albicans in the urine- again, will prescribe this to continue until 3 days past ureteral stent and stone removed -f/u Repeat blood cultures after discharge-no growth to date -Tylenol as needed for fevers-fevers resolved -Appreciate urology [id number] after discharge for stent and stone removal (2) Sinus pause: Had a 7.8-second pause and another 5-second sinus on telemetry on 02/15- asymptomatic and had no further episodes after this ECG with normal sinus rhythm normal intervals Appreciate cardiology consultation-suspects vagal event possibly due to recent ureteral manipulation and constipation He does have a history of syncope in childhood No further events since then Replaced electrolytes as needed-gave IV magnesium and oral potassium Cardiology feels that as long as his symptoms remain asymptomatic and he had no further episodes, no need for long-term monitoring (3) Hydronephrosis with urinary obstruction due to ureteral calculus: Now status post cystoscopy and ureteral stent placement Will need to follow-up with urology after discharge for stone management in the next 1 to 2 weeks [address] catheter in place so patient does not have to repeatedly straight cath- removed prior to discharge for trial of void but can self catheterize at home as needed -Continue tamsulosin daily before (4) Volume overload: Feeling short of breath and with bibasilar crackles on 02/17 Stopped IV fluids and gave IV Lasix Not hypoxic, crackles resolved, feeling much improved (5) Constipation: No bowel movement for 4 days prior to admission-likely ileus secondary to ureteral stone Had a bowel movement on the evening of 02/14 and then once to twice daily after that Continue MiraLAX daily upon discharge (6) Diabetes mellitus: Hemoglobin A1C uncontrolled at 8.3% He does not check his blood sugars at home He had hyperglycemia here which was managed with basal bolus insulin Appreciate diabetes education given-he was given a glucometer-was prescribed test strips and lancets upon discharge Hold metformin while inpatient can restart on discharge He will need additional oral medications for improved diabetes control after [id number] with PCP (7) Multiple sclerosis: Notable history of this, not on any medications Has primary progressive MS and has not seen neurology many years as he does not think there is anything that can be done for him Has weakness in right leg greater than left leg mostly but is able to ambulate He does feel some "brain fog" His weakness is improving his fevers are improving but caution for MS flare in the setting of acute infection No need for consult of neurology at this time but should consider following up as an outpatient Consult PT/OT appreciated-stable to return home (8) Neurogenic bladder: Require self-catheterization intermittently at home Presumably secondary to MS (9) Bacteremia: As above (10) Hypomagnesemia: Replaced with IV magnesium (11) Insomnia: Treated with melatonin 3 mg at bedtime scheduled and lorazepam 0.5 mg p.o. at bedtime as needed for insomnia He does report drinking several glasses of wine each night and he has now been in the hospital for 3 nights-this may be contributing to insomnia or anxiety VTE Prophylaxis - SCDs, Lovenox Disposition -stable for discharge to home Total Time Total Time Spent Total Time Spent (In Minutes): 40 minutes Discharge Plan Discharge Items Patient Disposition: Home - Self-Care Reason For Visit: OBSTRUCTING UTERAL STONE, UTI SEPSIS Discharge Diagnosis: Ureteral stone, Septicemia, Lactobacillus bacteremia, Lactobacillus and Shyanne albicans UTI, Sinus pauses secondary to vagal reaction, constipation Condition on Discharge: Good Activity: As commented below Lifting: Gradually increase as tolerated Bathing: No limitations Exercise/Sports: Gradually increase as tolerated Non-emergency contact: Primary Care Provider and Urologist Call non-emergency contact if: you have any medication questions, your symptoms worsen, you have a fever and your temperature is above 101 Follow-up/Referrals: Mich Dowling MD [Primary Care Provider] - (Follow up within 1-2 weeks.) Chuckie Crowell MD [Physician] - (Please follow up within 1-2 weeks for stone and stent removal.) Diet: Carb Consistent or DM2 and Heart Healthy Addtl Attending Provider Instructions: Please continue on the amoxicillin 500mg three times a day and on the fluconazole 200mg once daily for 3 days past when your ureteral stone and stent are removed. If you develop a fever or worsening abdominal pain, back pain, nausea/vomiting, or any other acute concerns, please call your doctor right away. You can continue intermittent clean catheterization of your bladder as before. Continue the laxatives to improve your constipation. You had some long pauses of your heart early in your stay which were likely due to a vagal response to your illness. The manager welding saw you and did not think you needed any further workup or monitoring after discharge. If you develop chest pains, heart palpitations, lightheadedness, or pass out, please come immediately back to the hospital. Pending Studies at Discharge: Yes (Blood cultures-no growth to date) Stand[facility]Alone Forms: [facility], Smoking Cessation Medications and DC Order Prescriptions: New polyethylene glycol 3350 [Miralax] 17 gram Powder In Packet 17 g PO BID Qty: 60 RF: 0 clotrimazole 1 % Cream 1 applic EXT BID 14 Days Qty: 15 RF: 0 amoxicillin 500 mg capsule 500 mg PO Q8H 14 Days Qty: 42 RF: 0 fluconazole 200 mg tablet 200 mg PO DAILY Qty: 14 RF: 0 (DME) OneTouch Verio test strips Strip See Rx Instructions .Route Qty: 50 RF: 0 (DME) lancets [OneTouch Delica Lancets] 33 gauge misc See Rx Instructions .Route Qty: 100 RF: 0 Continued tamsulosin 0.4 mg capsule 0.4 mg PO DAILY RF: 0 lisinopril 2.5 mg tablet 2.5 mg PO DAILY RF: 0 Changed metformin 750 mg tablet extended release 24 hr 750 mg PO TID Qty: 0 RF: 0 Discharge Orders: Discharge Order (Routine); Ordered 02/18/22 Ordered By: Tawny Olmedo/Other Patient Handouts: Managing Type 2 Diabetes Admission Data Admit Date/Time: 02/14/22 19:19 Attending Provider: Tawny Washburn Admit Provider: Darrion Watkins Primary Care Provider: Mich Dowling Other Providers: Terrence Albarran ; Darrion Watkins ; Bucky Philippe ; Andrew Izquierdo ; Mel Cleveland ; Joe Garcia I. ; [place]inio [place] II ; Berenice Capps ; Ferny Isabel ; Kristopher Knox Other Interventions: Discharge Summary Assessment (RN) Last Done: 02/18/22 14:59 Coding Level of Care Code D/C DAY MANAGEMENT >30 MINS Diagnoses Sepsis secondary to UTI A41.9; N39.0 Sinus pause I45.5 Hydronephrosis with urinary obstruction due to ureteral calculus N13.2 Volume overload E87.70 Constipation K59.00 Diabetes mellitus E11.9 Multiple sclerosis G35 Neurogenic bladder N31.9 Bacteremia R78.81 Hypomagnesemia E83.42 Insomnia G47.00
== END 2022-02-18 16:00 | disposition home or self-care (01) | DRG 854 ==
LOC: ED 15:56 → 2S 19:19 → SUATTDRO 19:19 → 2S 21:23